=== PATIENT | male | born 1950 | race Caucasian/White ===

== ENCOUNTER 2017-09-12 14:37 | Inpatient (IN) | payer MEDICARE, MEDICAID ==
[~2017-09-12] VITALS: Ht 172.7 cm; Wt 82.1 kg
[~2017-09-12 14:37] MED LIST: ONDA4TAB5 PO
--- NOTE | 2017-09-12 14:50 | NUR ---
RICK 88 FROM [facility] COMPLAINING OF CHEST PAIN, NON RADIATING SINCE THIS AM, PATIENT RECEIVED AWAKE AND ALERT. APPEARS IN NO DISTRESS. AFEBRILE. GOWNED PT AND PLACED ON TELE MONITOR. PENDING MD CHOI
[2017-09-12 15:02] LABS: BASOPHILS % (AUTO) 0.6 % (0.0-2.0); EOSINOPHILS # (AUTO) 0.3 /CMM (0.0-0.7); EOSINOPHILS % (AUTO) 4.1 % (0.0-6.0); HEMATOCRIT 36 % (39-51); HEMOGLOBIN 12.2 g/dL (13.5-17.5); LYMPHOCYTES # (AUTO) 1.2 /CMM (0.8-4.8); LYMPHOCYTES % (AUTO) 15.7 % (20.0-44.0); MEAN CORPUSCULAR HEMOGLOBIN 30 PG (26.0-33.0); MEAN CORPUSCULAR HGB CONC 34 g/dl (31.0-36.0); MEAN CORPUSCULAR VOLUME 88 fL (80-96); MONOCYTES # (AUTO) 0.5 /CMM (0.1-1.30); MONOCYTES % (AUTO) 6.5 % (2.0-12.0); NEUTROPHILS # (AUTO) 5.4 /CMM (1.8-8.9); NEUTROPHILS % (AUTO) 73.1 % (43.0-81.0); PLATELET COUNT (AUTO) 195 /CMM (150-450); RDW COEFFICIENT OF VARIATION 14.8 (11.5-15.0); RED BLOOD CELL COUNT(AUTO) 4.07 MIL/uL (4.5-6.0); WHITE BLOOD COUNT (AUTO) 7.4 K/uL (4.3-11.0)
[2017-09-12 15:25] LABS: INR 1.08 (0.87-1.13)
[2017-09-12 15:27] LABS: CALCIUM, SERUM 8.2 mg/dL (8.5-10.1); CARBON DIOXIDE 27 mmol/L (21-32); CHLORIDE 109 mmol/L (98-107); CREATININE 1.3 mg/dL (0.6-1.3); GLUCOSE 181 mg/dL (74-106); POTASSIUM 4.6 mmol/L (3.5-5.1); SODIUM SERUM 143 mmol/L (136-145); UREA NITROGEN, BLOOD 23 mg/dL (7-18)
[2017-09-12 15:41] LABS: TROPONIN I < 0.017 ng/mL (0.00-0.056)
--- NOTE | 2017-09-12 17:13 | NUR ---
CALLED NURSING SUP. FOR TELE BED
--- NOTE | 2017-09-12 17:28 | NUR ---
CALLED , LEFT MESSAGE ON VOICEMAIL
--- NOTE | 2017-09-12 18:00 | NUR ---
TELE 116-1
[2017-09-12] MEDS ORDERED: CARV3.122 PO (18:23)
--- NOTE | 2017-09-12 18:36 | NUR ---
REPORT GIVEN TO SUMANTH ERICKSON FOR LEIGH ANN
[2017-09-12] MEDS ORDERED: RANO500T3 PO (18:37)
[2017-09-12] MEDS ORDERED: NITR0.4T48 SL (18:37)
[2017-09-12] MEDS ORDERED: SENN-167 PO (18:37)
[2017-09-12] MEDS ORDERED: DIGO125T PO (18:37)
[2017-09-12] MEDS ORDERED: ATOR20TA PO (18:37)
[2017-09-12] MEDS ORDERED: APIX2.5T PO (18:37)
[2017-09-12] MEDS ORDERED: FINA5TAB11 PO (18:37)
[2017-09-12] MEDS ORDERED: ISOS30TA6 PO (18:37)
[2017-09-12] MEDS ORDERED: LEVO100T9 PO (18:37)
[2017-09-12] MEDS ORDERED: TAMS0.4C34 PO (18:37)
[2017-09-12] MEDS ORDERED: MAGN400O6 PO (18:37)
[2017-09-12] MEDS ORDERED: CLOP75TA15 PO (18:37)
[2017-09-12] MEDS ORDERED: IPRA0.2S9 IH (18:37)
[2017-09-12] MEDS ORDERED: RANI150C4 PO (18:37)
[2017-09-12] MEDS ORDERED: BISA10SU8 RC (18:37)
[2017-09-12] MEDS ORDERED: LINA5TAB PO (18:43)
[2017-09-12] MEDS ORDERED: ASPI-1169 PO (18:43)
[2017-09-12] MEDS ORDERED: SERT50TA PO (18:43)
[2017-09-12] MEDS ORDERED: MULT-447 PO (18:43)
[2017-09-12] MEDS ORDERED: CALC1TAB30 PO (18:43)
--- NOTE | 2017-09-12 19:05 | NUR ---
SY PAGED, SHANNON PAIGE TRACK FITTER
[2017-09-12] MEDS ORDERED: ASPIRIN 81 MG TAB.CHEW ONE (19:24)
[2017-09-12 20:00] VITALS: BP 114/78
[2017-09-12] MEDS ORDERED: NITROGLYCERIN 0.4 MG/TAB BOTTLE SL PRN (20:00)
[2017-09-12] MEDS ORDERED: ACETAMINOPHEN 325 MG TABLET PO PRN (20:00)
[2017-09-12] MEDS ORDERED: MAGNESIUM HYDROXIDE 30 ML UDC PO PRN (20:00)
[2017-09-12] MEDS ORDERED: ONDANSETRON HCL/PF 4 MG/2 ML VIAL IVP PRN (20:00)
[2017-09-12] MEDS ORDERED: DEXTROSE 50%-WATER 50 ML DISP.SYRIN IV PRN (20:00)
[2017-09-12] MEDS ORDERED: IPRATROPIUM NEB FS 0.5 MG/2.5 ML AMPUL.NEB IH PRN (20:00)
[2017-09-12] MEDS ORDERED: BISACODYL SUPP (10 MG) 10 MG/SUPP.RECT SUPP.RECT RC PRN (20:00)
[2017-09-12] MEDS ORDERED: MORPHINE SULFATE INJ 4 MG/ML DISP.SYRIN IV PRN (20:30)
[2017-09-12] MEDS: ATORVASTATIN 10 MG TABLET PO SCH (22:00)
[2017-09-12] MEDS: FUROSEMIDE 20 MG/2 ML VIAL IV SCH (22:00)
[2017-09-12] MEDS: BLOOD SUGAR DIAGNOSTIC 1 EACH STRIP IN SCH (22:24)
[2017-09-12] MEDS: INSULIN REGULAR, HUMAN 100 UNIT/ML 3 ML VIAL SQ PRN (22:26)
[2017-09-13] VITALS: BP 132/82
[2017-09-13] MEDS: FUROSEMIDE 20 MG/2 ML VIAL IV SCH ×2 (01:22→05:00)
[2017-09-13 04:00] VITALS: BP 132/64
[2017-09-13 06:40] LABS: BASOPHILS % (AUTO) 0.4 % (0.0-2.0); EOSINOPHILS # (AUTO) 0.4 /CMM (0.0-0.7); EOSINOPHILS % (AUTO) 4.7 % (0.0-6.0); HEMATOCRIT 40 % (39-51); HEMOGLOBIN 13.6 g/dL (13.5-17.5); LYMPHOCYTES # (AUTO) 1.2 /CMM (0.8-4.8); LYMPHOCYTES % (AUTO) 14.1 % (20.0-44.0); MEAN CORPUSCULAR HEMOGLOBIN 30 PG (26.0-33.0); MEAN CORPUSCULAR HGB CONC 34 g/dl (31.0-36.0); MEAN CORPUSCULAR VOLUME 89 fL (80-96); MONOCYTES # (AUTO) 0.5 /CMM (0.1-1.30); MONOCYTES % (AUTO) 6.3 % (2.0-12.0); NEUTROPHILS # (AUTO) 6.1 /CMM (1.8-8.9); NEUTROPHILS % (AUTO) 74.5 % (43.0-81.0); PLATELET COUNT (AUTO) 180 /CMM (150-450); RDW COEFFICIENT OF VARIATION 15.6 (11.5-15.0); RED BLOOD CELL COUNT(AUTO) 4.49 MIL/uL (4.5-6.0); WHITE BLOOD COUNT (AUTO) 8.2 K/uL (4.3-11.0)
[2017-09-13 06:51] LABS: ALBUMIN 3.3 g/dL (3.4-5.0); BILIRUBIN,TOTAL 1.5 mg/dL (0.2-1.0); CALCIUM, SERUM 8.7 mg/dL (8.5-10.1); CREATININE 1.4 mg/dL (0.6-1.3); MAGNESIUM 1.8 mg/dL (1.8-2.4); PHOSPHORUS 3.3 mg/dL (2.5-4.9); POTASSIUM 3.9 mmol/L (3.5-5.1); TOTAL PROTEIN, SERUM 7.2 g/dL (6.4-8.2)
[2017-09-13 06:54] LABS: THYROID STIMULATING HORMONE 6.669 uIU/mL (0.358-3.74)
--- NOTE | 2017-09-13 07:41 | NUR ---
RN NOTES RECEIVED PT FROM TECHNICAL MAINTENANCE SPECIALIST IN STABLE CONDITION, A&0X3, ON 2L NC NO SOB OR DISTRESS NOTED. ST ON THE TELE DELANO HR 120. L AC 18G IV SITE INTACT NO IVF. BED LOCKED AND IN LOWEST POSITION, CALL LIGHT WITHIN REACH, SIDE RAILS UPX3, WILL CONT TO DELANO.
[2017-09-13 08:00] VITALS: BP 103/60
[2017-09-13] MEDS: BLOOD SUGAR DIAGNOSTIC 1 EACH STRIP IN SCH ×4 (08:34→22:03)
[2017-09-13] MEDS: SERTRALINE HCL 50 MG TABLET PO SCH (08:36)
[2017-09-13] MEDS: CARVEDILOL 3.125 MG TABLET PO SCH ×2 (08:36→16:55)
[2017-09-13] MEDS: CLOPIDOGREL BISULFATE 75 MG TABLET PO SCH (08:36)
[2017-09-13] MEDS: SENNOSIDES 8.6 MG TABLET PO SCH (08:37)
[2017-09-13] MEDS: FINASTERIDE (5 MG) 5 MG TABLET PO SCH (08:37)
[2017-09-13] MEDS: LEVOTHYROXINE SODIUM 100 MCG TABLET PO SCH (08:37)
[2017-09-13] MEDS: LINAGLIPTIN 5 MG TABLET PO SCH (08:37)
[2017-09-13] MEDS: ISOSORBIDE MONONITRATE (30MG) 30 MG TAB.SR.24H PO SCH (08:38)
[2017-09-13] MEDS: INSULIN REGULAR, HUMAN 100 UNIT/ML 3 ML VIAL SQ PRN ×3 (08:41→22:07)
[2017-09-13] MEDS: APIXABAN 2.5 MG TABLET PO SCH ×2 (08:42→16:53)
[2017-09-13] MEDS ORDERED: FUROSEMIDE 20 MG/2 ML VIAL IV SCH (09:00)
[2017-09-13] MEDS ORDERED: ASPIRIN 81 MG TAB.CHEW PO SCH ×2 (09:00)
[2017-09-13] MEDS: TAMSULOSIN 0.4 MG CAP.SR.24H PO SCH (09:22)
[2017-09-13] MEDS: FUROSEMIDE 40 MG/4 ML VIAL IV SCH ×3 (11:07→18:28)
[2017-09-13 11:49] LABS: ABG BASE EXCESS 3.2 mmol/L; ABG OXYGEN SATURATION 92.7 % (92.0-98.5); ABG PH 7.475 (7.350-7.450); ABG PO2 65.7 mmHg (75.0-100.0); AaDO2 119.2 mmHg; COHb 1.5 % (0.5-1.5); MetHb 0.3 % (0.0-1.5); SITE, ABG Right Brachial; VENT MODE, BG 3L NC
[2017-09-13 12:00] VITALS: BP 105/60
[2017-09-13 12:06] LABS: THYROID STIMULATING HORMONE 6.604 uIU/mL (0.358-3.74)
[2017-09-13] MEDS: DIGOXIN 0.125 MG TABLET PO SCH (12:17)
[2017-09-13 16:00] VITALS: BP 117/82
--- NOTE | 2017-09-13 18:50 | NUR ---
RN NOTES PT REMAINED IN STABLE IN STABLE CONDITION THROUGHOUT THE SHIFT, NO SIGNIFICANT CHANGES, ALL NEEDS MET. WILL ENDORSE TO ONCOMING SHIFT.
[2017-09-13 20:00] VITALS: BP 109/75
[2017-09-13] MEDS: ATORVASTATIN 10 MG TABLET PO SCH (22:03)
[2017-09-14] VITALS: BP 107/73
[2017-09-14 04:00] VITALS: BP 123/71
[2017-09-14 06:58] LABS: BASOPHILS # (AUTO) 0.1 /CMM (0.0-0.2); BASOPHILS % (AUTO) 0.9 % (0.0-2.0); EOSINOPHILS # (AUTO) 0.6 /CMM (0.0-0.7); EOSINOPHILS % (AUTO) 5.1 % (0.0-6.0); HEMATOCRIT 44 % (39-51); HEMOGLOBIN 14.7 g/dL (13.5-17.5); LYMPHOCYTES # (AUTO) 1.3 /CMM (0.8-4.8); LYMPHOCYTES % (AUTO) 11.9 % (20.0-44.0); MEAN CORPUSCULAR HEMOGLOBIN 30 PG (26.0-33.0); MEAN CORPUSCULAR HGB CONC 34 g/dl (31.0-36.0); MEAN CORPUSCULAR VOLUME 90 fL (80-96); MONOCYTES # (AUTO) 1.1 /CMM (0.1-1.30); MONOCYTES % (AUTO) 9.8 % (2.0-12.0); NEUTROPHILS # (AUTO) 7.8 /CMM (1.8-8.9); NEUTROPHILS % (AUTO) 72.3 % (43.0-81.0); PLATELET COUNT (AUTO) 194 /CMM (150-450); RDW COEFFICIENT OF VARIATION 15.4 (11.5-15.0); RED BLOOD CELL COUNT(AUTO) 4.84 MIL/uL (4.5-6.0); WHITE BLOOD COUNT (AUTO) 10.8 K/uL (4.3-11.0)
[2017-09-14 07:13] LABS: ALBUMIN 3.4 g/dL (3.4-5.0); CALCIUM, SERUM 8.6 mg/dL (8.5-10.1); CREATININE 1.7 mg/dL (0.6-1.3); MAGNESIUM 1.8 mg/dL (1.8-2.4); PHOSPHORUS 4.5 mg/dL (2.5-4.9); POTASSIUM 3.3 mmol/L (3.5-5.1); TOTAL PROTEIN, SERUM 7.6 g/dL (6.4-8.2)
[2017-09-14 07:15] LABS: TROPONIN I 0.018 ng/mL (0.00-0.056)
--- NOTE | 2017-09-14 07:34 | NUR ---
RN NOTES RECEIVED PT FROM BRUSH POLISHER, A&0X3, ON 2L NC, NO DISTRESS NOTED. A FLUTTER/ST ON THE TELE DELANO HR 120. LAC 18G IV SITE INTACT NO IVF. URINAL AT BEDSIDE. BED LOCKED AND IN LOWEST POSITION, CALL LIGHT WITHIN REACH, SIDE RAILS UPX3, WILL CONT TO DELANO.
[2017-09-14 08:00] VITALS: BP 104/76
[2017-09-14] MEDS: INSULIN REGULAR, HUMAN 100 UNIT/ML 3 ML VIAL SQ PRN ×4 (08:52→21:35)
[2017-09-14] MEDS: TAMSULOSIN 0.4 MG CAP.SR.24H PO SCH (08:54)
[2017-09-14] MEDS: CLOPIDOGREL BISULFATE 75 MG TABLET PO SCH (08:55)
[2017-09-14] MEDS: SERTRALINE HCL 50 MG TABLET PO SCH (08:55)
[2017-09-14] MEDS: SENNOSIDES 8.6 MG TABLET PO SCH (08:56)
[2017-09-14] MEDS: LEVOTHYROXINE SODIUM 100 MCG TABLET PO SCH (08:56)
[2017-09-14] MEDS: BLOOD SUGAR DIAGNOSTIC 1 EACH STRIP IN SCH ×4 (08:56→21:27)
[2017-09-14] MEDS: LINAGLIPTIN 5 MG TABLET PO SCH (08:56)
[2017-09-14] MEDS: FINASTERIDE (5 MG) 5 MG TABLET PO SCH (08:56)
[2017-09-14] MEDS: ISOSORBIDE MONONITRATE (30MG) 30 MG TAB.SR.24H PO SCH (09:00)
[2017-09-14] MEDS: CARVEDILOL 3.125 MG TABLET PO SCH ×2 (09:00→17:00)
[2017-09-14] MEDS: APIXABAN 2.5 MG TABLET PO SCH ×2 (09:03→17:32)
[2017-09-14] MEDS ORDERED: FUROSEMIDE 40 MG/4 ML VIAL IV SCH (10:00)
[2017-09-14] MEDS: POTASSIUM CHLORIDE 20 MEQ TAB.PRT.SR PO SCH ×3 (10:14→12:23)
[2017-09-14 12:00] VITALS: BP 132/81
[2017-09-14] MEDS: DIGOXIN 0.125 MG TABLET PO SCH (12:24)
[2017-09-14] MEDS: MAG HYDROX/AL HYDROX/SIMETH 30 ML UDC PO SCH ×2 (15:05→20:30)
[2017-09-14 16:00] VITALS: BP 107/85
--- NOTE | 2017-09-14 18:29 | NUR ---
RN NOTES PT REMAINED IN STABLE CONDITION THROUGHOUT THE SHIFT, ALL NEEDS MET, NO SIGNIFICANT CHANGES NOTED. CT ABDOMEN COMPLETE. WILL ENDORSE TO ONCOMING SHIFT.
--- NOTE | 2017-09-14 19:50 | NUR ---
RN OPENING NOTES RECEIVED REPORT FROM DAYSHIFT RN. FOUND Pt AWAKE, RESTING IN BED, WATCHING TV. NO S/S OF ACUTE DISTRESS OR SOB NOTED. NO C/O CP OR ANY OTHER PAIN. IV ACCESS ON LAC #18G, SL. ON TELE MONITOR, ST 120s. SAFETY MEASURES IN PLACE. BED LOW, LOCKED, HOB ELEVATED, SIDE RAILS UP, CALL LIGHT AND BEDSIDE TABLE WITHIN REACH. WILL CONTINUE TO MONITOR Pt THROUGH OUT THE NIGHT FOR SAFETY.
[2017-09-14 20:00] VITALS: BP 132/67
[2017-09-14] MEDS: ATORVASTATIN 10 MG TABLET PO SCH (21:27)
--- NOTE | 2017-09-14 22:30 | NUR ---
RN NOTES BG 148. ADMINISTERED 2UN OF INSULIN PER SLIDING SCALE.
[2017-09-15] VITALS (8 sets, daily range): BP systolic 97–127; BP diastolic 66–86
[2017-09-15] MEDS: MAG HYDROX/AL HYDROX/SIMETH 30 ML UDC PO SCH ×4 (02:30→19:49)
--- NOTE | 2017-09-15 06:45 | NUR ---
RN CLOSING NOTES NO SIGNIFICANT CHANGES IN Pt's CONDITION. Pt REMAINS IN STABLE CONDITION. NO S/S OF ACUTE DISTRESS OR SOB NOTED DURING THE NIGHT. ALL NEEDS MET AND ATTENDED TO. SAFETY MEASURES IN PLACE. TELE READING SR 88 - ST 125, AFLUTTER. WILL ENDORSE TO DAYSHIFT RN FOR Pt's LEIGH ANN.
[2017-09-15] MEDS: PANTOPRAZOLE 40 MG TABLET.DR PO SCH (07:30)
--- NOTE | 2017-09-15 07:30 | NUR ---
RESEARCH ENGINEER NOTES PATIENT IN BED, SLEEPING, AROUSES EASILY. ON TELE MONITOR AFLUTTER HR 126, SATING 96% ON OXYGENT AT 2L/MIN VIA NC, NO SOB. NO IVC IN PLACE. PLACE CALL LIGHT WITHIN REACH. WILL CONT TO MONITOR.
[2017-09-15] MEDS: BLOOD SUGAR DIAGNOSTIC 1 EACH STRIP IN SCH ×4 (08:27→21:24)
[2017-09-15] MEDS: SENNOSIDES 8.6 MG TABLET PO SCH (09:21)
[2017-09-15] MEDS: FINASTERIDE (5 MG) 5 MG TABLET PO SCH (09:22)
[2017-09-15] MEDS: SERTRALINE HCL 50 MG TABLET PO SCH (09:22)
[2017-09-15] MEDS: TAMSULOSIN 0.4 MG CAP.SR.24H PO SCH (09:22)
[2017-09-15] MEDS: LEVOTHYROXINE SODIUM 100 MCG TABLET PO SCH (09:22)
[2017-09-15] MEDS: ISOSORBIDE MONONITRATE (30MG) 30 MG TAB.SR.24H PO SCH (09:23)
[2017-09-15] MEDS: CARVEDILOL 3.125 MG TABLET PO SCH (09:23)
[2017-09-15] MEDS: LINAGLIPTIN 5 MG TABLET PO SCH (09:26)
[2017-09-15] MEDS: APIXABAN 2.5 MG TABLET PO SCH ×2 (09:32→16:49)
[2017-09-15] MEDS: INSULIN REGULAR, HUMAN 100 UNIT/ML 3 ML VIAL SQ PRN ×4 (09:34→21:27)
[2017-09-15 09:48] LABS: BASOPHILS # (AUTO) 0.1 /CMM (0.0-0.2); BASOPHILS % (AUTO) 1.2 % (0.0-2.0); EOSINOPHILS # (AUTO) 0.4 /CMM (0.0-0.7); EOSINOPHILS % (AUTO) 3.9 % (0.0-6.0); HEMATOCRIT 45 % (39-51); HEMOGLOBIN 15.1 g/dL (13.5-17.5); LYMPHOCYTES # (AUTO) 1.3 /CMM (0.8-4.8); LYMPHOCYTES % (AUTO) 12.5 % (20.0-44.0); MEAN CORPUSCULAR HEMOGLOBIN 30 PG (26.0-33.0); MEAN CORPUSCULAR HGB CONC 33 g/dl (31.0-36.0); MEAN CORPUSCULAR VOLUME 90 fL (80-96); MONOCYTES # (AUTO) 0.8 /CMM (0.1-1.30); MONOCYTES % (AUTO) 7.7 % (2.0-12.0); NEUTROPHILS # (AUTO) 7.7 /CMM (1.8-8.9); NEUTROPHILS % (AUTO) 74.7 % (43.0-81.0); PLATELET COUNT (AUTO) 232 /CMM (150-450); RDW COEFFICIENT OF VARIATION 15.6 (11.5-15.0); RED BLOOD CELL COUNT(AUTO) 5.06 MIL/uL (4.5-6.0); WHITE BLOOD COUNT (AUTO) 10.3 K/uL (4.3-11.0)
[2017-09-15 10:10] LABS: ALBUMIN 3.4 g/dL (3.4-5.0); BILIRUBIN,TOTAL 0.9 mg/dL (0.2-1.0); CALCIUM, SERUM 8.5 mg/dL (8.5-10.1); CREATININE 1.6 mg/dL (0.6-1.3); MAGNESIUM 2.2 mg/dL (1.8-2.4); PHOSPHORUS 3.9 mg/dL (2.5-4.9); POTASSIUM 4.3 mmol/L (3.5-5.1); TOTAL PROTEIN, SERUM 7.6 g/dL (6.4-8.2)
[2017-09-15] MEDS: CARVEDILOL 6.25 MG TABLET PO SCH ×2 (11:00→16:53)
--- NOTE | 2017-09-15 11:17 | NUR ---
NEW ORDER CARVEDILOL 6.26MG BID, CLARIFIED ORDERS WITH DR. TOUSSAINT, PER MD TO GIVE CARVEDILOL 3.215MG X1 TOTAL OF 6.25MG AM DOSE.
[2017-09-15] MEDS ORDERED: CARVEDILOL 3.125 MG TABLET PO ONE (11:30)
[2017-09-15] MEDS ORDERED: LEVOFLOXACIN 500 MG /D5W 100ML 500 MG in PREMIX 1 EA IV SCH (12:00)
[2017-09-15] MEDS ORDERED: LEVOFLOXACIN 500 MG /D5W 100ML 500 MG in PREMIX 1 EA IV ONE (12:00)
[2017-09-15] MEDS: DIGOXIN 0.125 MG TABLET PO SCH (12:40)
[2017-09-15] MEDS: FUROSEMIDE 100 MG/10 ML VIAL IV SCH ×3 (12:48→19:51)
--- NOTE | 2017-09-15 18:28 | NUR ---
INTERMEDIATE SCHOOL TEACHER CLOSING NOTES PATIENT IN BED, AWAKE, A/O X3. ON TELE MONITOR AFLWAYLON HR 126, IS AWARE, DENIES ANY DISCOMFORT. BLOOD SUGAR MONITORED WITH ISS COVERAGE ORDERED. IVC IN LEFT WRIST G22 PATENT AND INTACT, FLUSHES WELL. IV ANTIBIOTIC GIVEN WITH NO ADVERSE SIDE EFFECT. URINE SENT TO LAB FOR TEST, RESULT PENDING. CALL LIGHT WITHIN REACH. WILL ENDORSE TO STEWARD/STEWARDESS SMOKE ROOM RN FOR LEIGH ANN.
--- NOTE | 2017-09-15 19:40 | NUR ---
rn initial notes: received report from day rn, pt in bed, awake, a/o x3 on 2l via nc respiration even and unlabored, denies any pain or discomfort at this time. lV access patent and flushing well, covered with kerlix, on hl. ble offloaded, pt using urinal, urinal within reach. on tele monitoring AFLUTTER HR 122, cardio following the pt, md aware of rhythm, safety precautions for fall initiated call light in reach, will continue monitoring pt
[2017-09-15] MEDS: ATORVASTATIN 10 MG TABLET PO SCH (21:24)
--- NOTE | 2017-09-15 21:28 | NUR ---
ACCU CHECK: BLOOD SUGAR CHECK AND REVEAL 179, 3UNITS OF INSULIN GIVEN PER SLIDING SCALE, PT TOLERATING PO INTAKE, ON CCHO DIET, WILL MONITOR PT FOR ANY S/S OF HYPOGLYCEMIA
[2017-09-16] VITALS: BP 91/67
[2017-09-16 00:47] LABS: APPEARANCE,URINE CLEAR (CLEAR); BILIRUBIN,URINE NEGATIVE (NEGATIVE); BLOOD, URINE NEGATIVE Ery/uL (NEGATIVE); COLOR,URINE YELLOW (YELLOW); KETONES,URINE NEGATIVE (NEGATIVE); LEUKOCYTE ESTERASE ,URINE NEGATIVE (NEGATIVE); NITRITE, URINE NEGATIVE (NEGATIVE); PROTEIN,URINE NEGATIVE (NEGATIVE); UGLUCOSE NEGATIVE (NEGATIVE); UROBILINOGEN,URINE 0.2 EU/dL (0.2)
[2017-09-16 00:57] LABS: CREATININE, URINE 27.8 MG/DL (30.0-125.0); URINE TOTAL PROTEIN 10.1 mg/dL (0-11.9)
[2017-09-16 01:53] LABS: EOSINOPHIL,URINE None Seen
[2017-09-16] MEDS: MAG HYDROX/AL HYDROX/SIMETH 30 ML UDC PO SCH ×4 (02:30→21:27)
[2017-09-16 04:00] VITALS: BP 102/68
--- NOTE | 2017-09-16 05:30 | NUR ---
am care: bed bath provided by will
[2017-09-16] MEDS: BLOOD SUGAR DIAGNOSTIC 1 EACH STRIP IN SCH ×4 (06:15→21:27)
[2017-09-16] MEDS: LEVOTHYROXINE SODIUM 100 MCG TABLET PO SCH (06:16)
[2017-09-16] MEDS: PANTOPRAZOLE 40 MG TABLET.DR PO SCH (06:16)
[2017-09-16] MEDS: INSULIN REGULAR, HUMAN 100 UNIT/ML 3 ML VIAL SQ PRN ×4 (06:18→21:30)
--- NOTE | 2017-09-16 06:18 | NUR ---
BLOOD SUGAR: CHECKED BLOOD SUGAR FOR THE MORNING, AND RESULT IS 194, 3UNITS OF INSULIN GIVEN PER SLIDING SCALE, WILL MONITOR PT FOR ANY S/S OF HYPOGLYCEMIA
--- NOTE | 2017-09-16 06:34 | NUR ---
rn closing notes: pt in bed, remains a/o x3, on 2l via nc denies any sob, denies any chest pain. iv access remains patent and flushing well, on hl. weight taken. vs remains stable, pt remains on a flutter hr 121. ble offloaded. needs attended. safety precautions for fall remain engaged, call light in reach, will endorse to day rn for jace.
[2017-09-16 07:41] LABS: BASOPHILS % (AUTO) 0.3 % (0.0-2.0); EOSINOPHILS # (AUTO) 0.7 /CMM (0.0-0.7); EOSINOPHILS % (AUTO) 5.5 % (0.0-6.0); HEMATOCRIT 44 % (39-51); HEMOGLOBIN 15.1 g/dL (13.5-17.5); LYMPHOCYTES # (AUTO) 1.8 /CMM (0.8-4.8); LYMPHOCYTES % (AUTO) 14.1 % (20.0-44.0); MEAN CORPUSCULAR HEMOGLOBIN 30 PG (26.0-33.0); MEAN CORPUSCULAR HGB CONC 34 g/dl (31.0-36.0); MEAN CORPUSCULAR VOLUME 88 fL (80-96); MONOCYTES % (AUTO) 8.1 % (2.0-12.0); NEUTROPHILS # (AUTO) 8.9 /CMM (1.8-8.9); PLATELET COUNT (AUTO) 246 /CMM (150-450); RDW COEFFICIENT OF VARIATION 14.9 (11.5-15.0); RED BLOOD CELL COUNT(AUTO) 4.99 MIL/uL (4.5-6.0); WHITE BLOOD COUNT (AUTO) 12.4 K/uL (4.3-11.0)
[2017-09-16 07:52] LABS: ALBUMIN 3.4 g/dL (3.4-5.0); BILIRUBIN,TOTAL 0.8 mg/dL (0.2-1.0); CALCIUM, SERUM 8.7 mg/dL (8.5-10.1); CREATININE 1.8 mg/dL (0.6-1.3); MAGNESIUM 2.3 mg/dL (1.8-2.4); POTASSIUM 3.4 mmol/L (3.5-5.1); TOTAL PROTEIN, SERUM 7.6 g/dL (6.4-8.2)
[2017-09-16 08:00] VITALS: BP_SYST 107; BP_SYST 114; BP_DIAS 59; BP_DIAS 78
[2017-09-16] MEDS: SENNOSIDES 8.6 MG TABLET PO SCH (09:36)
[2017-09-16] MEDS: LINAGLIPTIN 5 MG TABLET PO SCH (09:38)
[2017-09-16] MEDS: SERTRALINE HCL 50 MG TABLET PO SCH (09:38)
[2017-09-16] MEDS: TAMSULOSIN 0.4 MG CAP.SR.24H PO SCH (09:38)
[2017-09-16] MEDS: FINASTERIDE (5 MG) 5 MG TABLET PO SCH (09:39)
[2017-09-16] MEDS: ISOSORBIDE MONONITRATE (30MG) 30 MG TAB.SR.24H PO SCH (09:40)
[2017-09-16] MEDS: CARVEDILOL 6.25 MG TABLET PO SCH ×2 (09:41→17:00)
[2017-09-16] MEDS: APIXABAN 2.5 MG TABLET PO SCH ×2 (09:42→17:14)
[2017-09-16] MEDS: POTASSIUM CHLORIDE 20 MEQ TAB.PRT.SR PO SCH ×2 (11:00→11:08)
[2017-09-16] MEDS: DIGOXIN 0.125 MG TABLET PO SCH (12:48)
[2017-09-16] MEDS ORDERED: POTASSIUM CHLORIDE 20 MEQ TAB.PRT.SR PO SCH (13:00)
[2017-09-16] MEDS: LEVOFLOXACIN 250 MG /D5W 50 ML 250 MG in PREMIX 1 EA IV SCH (14:29)
[2017-09-16 16:00] VITALS: BP 98/73
--- NOTE | 2017-09-16 17:30 | NUR ---
RN NOTE ADDED PUREED TEXTURE TO THE DIET DUE TO PT POOR PO INTAKE SECONDARY TO ABSENT DENTURES. PT UNABLE TO CHEW REGULAR FOOD.
--- NOTE | 2017-09-16 18:54 | NUR ---
RN NOTE PT REMAINED STABLE, SLEPT MOST OF THE DAY, WAS AWAKEN FOR FOOD AND MEDS. PT ABLE TO USE URINAL. PT DID NOT EAT BREAKFAST AND LUNCH BUT FOR DINNER ATE 100%. ALL NEEDS MET, MEDS GIVEN PRESCRIBED, CALL LIGHT WITHIN REACH. WILL ENDORSE TO LEATHER FLESHER.
--- NOTE | 2017-09-16 19:30 | NUR ---
rn initial notes: received pt in bed, awake, a/o x3 on 2l via nc respiration even and unlabored, denies any pain or discomfort at this time. lV access patent and flushing well, covered with kerlix, on hl. ble offloaded. safety precautions for fall initiated call light in reach, will continue monitoring pt
[2017-09-16 20:00] VITALS: BP 103/74
[2017-09-16] MEDS: ATORVASTATIN 10 MG TABLET PO SCH (21:27)
[2017-09-17] MEDS: MAG HYDROX/AL HYDROX/SIMETH 30 ML UDC PO SCH ×4 (02:30→20:56)
--- NOTE | 2017-09-17 06:31 | NUR ---
rn closing notes: pt in bed, remains a/o x3, on 2l via nc denies any sob, denies any chest pain. iv access remains patent and flushing well, on hl. vs remains stable, ble offloaded. needs attended. safety precautions for fall remain engaged, call light in reach, will endorse to day rn for jace.
[2017-09-17] MEDS: BLOOD SUGAR DIAGNOSTIC 1 EACH STRIP IN SCH ×4 (06:35→22:00)
[2017-09-17] MEDS: INSULIN REGULAR, HUMAN 100 UNIT/ML 3 ML VIAL SQ PRN ×3 (06:36→22:08)
[2017-09-17 06:52] LABS: BASOPHILS # (AUTO) 0.1 /CMM (0.0-0.2); BASOPHILS % (AUTO) 0.7 % (0.0-2.0); EOSINOPHILS # (AUTO) 0.6 /CMM (0.0-0.7); EOSINOPHILS % (AUTO) 6.1 % (0.0-6.0); HEMATOCRIT 43 % (39-51); HEMOGLOBIN 14.5 g/dL (13.5-17.5); LYMPHOCYTES # (AUTO) 1.6 /CMM (0.8-4.8); LYMPHOCYTES % (AUTO) 15.9 % (20.0-44.0); MEAN CORPUSCULAR HEMOGLOBIN 30 PG (26.0-33.0); MEAN CORPUSCULAR HGB CONC 34 g/dl (31.0-36.0); MEAN CORPUSCULAR VOLUME 89 fL (80-96); MONOCYTES # (AUTO) 0.9 /CMM (0.1-1.30); MONOCYTES % (AUTO) 8.6 % (2.0-12.0); NEUTROPHILS # (AUTO) 6.8 /CMM (1.8-8.9); NEUTROPHILS % (AUTO) 68.7 % (43.0-81.0); PLATELET COUNT (AUTO) 232 /CMM (150-450); RDW COEFFICIENT OF VARIATION 15.6 (11.5-15.0)
[2017-09-17 07:04] LABS: CALCIUM, SERUM 8.3 mg/dL (8.5-10.1); CREATININE 1.6 mg/dL (0.6-1.3); MAGNESIUM 2.6 mg/dL (1.8-2.4); PHOSPHORUS 3.6 mg/dL (2.5-4.9); POTASSIUM 3.7 mmol/L (3.5-5.1)
--- NOTE | 2017-09-17 07:32 | NUR ---
RN OPENING NOTES RECEIVED PATIENT IN BED RESTING. NO ACUTE DISTRESS, NO SOB NOTED. DENIES ANY PAIN OR DISCOMFORT. IV SITE INTACT AND PATENT. SAFETY PRECAUTIONS IN PLACE. BED IN LOCKED LOW POSITION, SIDERAILS UPX2. CALL LIGHT IN REACH. WILL CONTINUE TO MONITOR ACCORDINGLY.
[2017-09-17 07:55] VITALS: BP 101/65
[2017-09-17 08:00] VITALS: BP 101/65
[2017-09-17] MEDS: PANTOPRAZOLE 40 MG TABLET.DR PO SCH (08:25)
[2017-09-17] MEDS: LINAGLIPTIN 5 MG TABLET PO SCH (08:26)
[2017-09-17] MEDS: LEVOTHYROXINE SODIUM 100 MCG TABLET PO SCH (08:26)
[2017-09-17] MEDS: FINASTERIDE (5 MG) 5 MG TABLET PO SCH (08:26)
[2017-09-17] MEDS: TAMSULOSIN 0.4 MG CAP.SR.24H PO SCH (08:26)
[2017-09-17] MEDS: SERTRALINE HCL 50 MG TABLET PO SCH (08:28)
[2017-09-17] MEDS: APIXABAN 2.5 MG TABLET PO SCH ×2 (08:28→16:51)
[2017-09-17] MEDS: CARVEDILOL 6.25 MG TABLET PO SCH ×2 (08:50→17:00)
[2017-09-17] MEDS: ISOSORBIDE MONONITRATE (30MG) 30 MG TAB.SR.24H PO SCH (08:51)
[2017-09-17] MEDS ORDERED: LACTULOSE 10 G/15 ML UDC (PYXIS) PO STA (10:15)
[2017-09-17] MEDS ORDERED: POLYETHYLENE GLYCOL 3350 17 GM POWD.PACK PO PRN (10:30)
[2017-09-17] MEDS ORDERED: TAMSULOSIN 0.4 MG CAP.SR.24H PO SCH ×2 (11:00→22:00)
[2017-09-17] MEDS: LEVOFLOXACIN 250 MG /D5W 50 ML 250 MG in PREMIX 1 EA IV SCH (12:15)
[2017-09-17] MEDS: DIGOXIN 0.125 MG TABLET PO SCH (13:39)
[2017-09-17 16:00] VITALS: BP 105/74
--- NOTE | 2017-09-17 19:23 | NUR ---
RN CLOSING NOTES PATIENT IN BED RESTING. NO ACUTE DISTRESS, NO SOB NOTED. ALL NEEDS ATTENDED AND PROVIDED. KEPT PATIENT CLEAN AND COMFORTABLE IN BED. SAFETY MEASURES IN PLACE. BED IN LOW LOCKED POSITION, SIDERAILS UPX2, CALL LIGHT IN REACH. ENDORSED TO NIGHT RN FOR LEIGH ANN.
--- NOTE | 2017-09-17 19:30 | NUR ---
MS RN OPENING NOTES: PATIENT IN BED, AOX3, ON O2 AT 3 LPM VIA NC, BREATHING EVEN AND UNLABORED. BREATH SOUNDS CLEAR TO AUSCULTATION. PATIENT APPEARS CALM AND IN NO DISTRESS, BUT DOES STATE THAT HE HAS MILD, DULL, NON PRESSING, NON RADIATING LEFT SIDED CHEST PAIN SCALED AT 2/10. PATIENT HAS NO PIV AT THIS TIME, PURA REINSERT NEW PIV. PROVIDED FOR COMFORT AND SAFETY. BED IN LOWEST AND LOCKED POSITION, SIDERAILS UP X 3, CALL LIGHT WITHIN REACH. WILL CONT TO MONITOR.
[2017-09-17 20:00] VITALS: BP 114/79
[2017-09-17 22:00] VITALS: BP 114/79
[2017-09-17] MEDS: ATORVASTATIN 10 MG TABLET PO SCH (22:00)
--- NOTE | 2017-09-17 22:00 | NUR ---
RN NOTES: BLOOD SUGAR CHECKED AT 173 MG/DL, ADMINISTERED 3 UNITS REGULAR INSULIN SQ PER SCALE. GAVE LIGHT SNACK. WILL CONT TO MONITOR.
--- NOTE | 2017-09-17 23:09 | NUR ---
SUMANTH NOTES: REINSERTED NEW PIV OVER L HAND G 22. Addendum: 09/18/17 at 0150 by DEBBIE PARRISH RN ERROR: PIV PLACED OVER R HAND, NOT LEFT. G22.
[2017-09-18] VITALS (7 sets, daily range): BP systolic 93–119; BP diastolic 52–86
--- NOTE | 2017-09-18 02:04 | NUR ---
RN NOTES: PATIENT'S O2 SAT DECREASED TO 88% ON ROOM AIR, PLACED PATIENT BACK ON O2 AT 2 LPM VIA NC. O2 SAT RECHECKED AT 95%. MAINTAINED HOB ELEVATED. WILL CONT TO MONITOR.
[2017-09-18] MEDS: MAG HYDROX/AL HYDROX/SIMETH 30 ML UDC PO SCH ×2 (02:30→08:06)
--- NOTE | 2017-09-18 06:45 | NUR ---
MS RN CLOSING NOTES: PATIENT IN BED, AOX3, ON O2 AT 2 LPM VIA NC, BREATHING EVEN AND UNLABORED. APPEARS CALM AND IN NO DISTRESS, DENIES CHEST PAIN/ PAIN AT THIS TIME. PIV OVER R HAND G 22 INTACT AND PATENT TO FLUSH. PROVIDED FOR COMFORT AND SAFETY . BED IN LOWEST AND LOCKED POSITION, SIDERAILS UP X 3. CALL LIGHT WITHIN REACH. WILL ENDORSE TO AM RN FOR LEIGH ANN.
--- NOTE | 2017-09-18 07:20 | NUR ---
RN OPEN NOTES RECEIVED REPORT FROM MINT WAFER DEPOSITOR NURSE. PATIENT IS IN BED WITH HIS EYES CLOSED. PATIENT IS SLEEPY BUT AROUSE FOR CALLING HIS NAME LOUDLY AND DEEP TOUCH. BREATHING IN BILATERALLY EVEN AND UNLABORED. NO SIGNS AND SYMPTOMS OF DISTRESS OR PAIN. BED IN LOW POSITION, LOCKED AND TWO SIDE RAILS ARE UP. CALL LIGHT WITHIN REACH FOR SAFETY. WILL CONTINUE TO MONITOR AND ASSESS PATIENT Addendum: 09/18/17 at 1044 by HO PEPE RN AMENDMENT: PATIENT IS IN BED, AWAKE ALERT AND ORIENTED TO SELF ONLY. CONFUSED. UNABLE TO TELL TIME OR PLACE.
[2017-09-18] MEDS: LINAGLIPTIN 5 MG TABLET PO SCH (08:03)
[2017-09-18] MEDS: BLOOD SUGAR DIAGNOSTIC 1 EACH STRIP IN SCH ×3 (08:04→16:35)
[2017-09-18] MEDS: PANTOPRAZOLE 40 MG TABLET.DR PO SCH (08:04)
[2017-09-18] MEDS: SERTRALINE HCL 50 MG TABLET PO SCH (08:05)
[2017-09-18] MEDS: LEVOTHYROXINE SODIUM 100 MCG TABLET PO SCH (08:05)
[2017-09-18] MEDS: ISOSORBIDE MONONITRATE (30MG) 30 MG TAB.SR.24H PO SCH (08:05)
[2017-09-18] MEDS: CARVEDILOL 6.25 MG TABLET PO SCH ×2 (08:05→16:37)
[2017-09-18] MEDS: APIXABAN 2.5 MG TABLET PO SCH ×2 (08:06→16:36)
[2017-09-18] MEDS: INSULIN REGULAR, HUMAN 100 UNIT/ML 3 ML VIAL SQ PRN ×3 (08:06→16:40)
[2017-09-18] MEDS: FINASTERIDE (5 MG) 5 MG TABLET PO SCH (08:06)
[2017-09-18] MEDS ORDERED: DEXTROSE 50%-WATER 50 ML DISP.SYRIN IV PRN (11:00)
[2017-09-18 12:11] LABS: PTH, INTACT 125 pg/mL (15-65)
[2017-09-18] MEDS: LEVOFLOXACIN 250 MG /D5W 50 ML 250 MG in PREMIX 1 EA IV SCH (12:20)
[2017-09-18] MEDS: DIGOXIN 0.125 MG TABLET PO SCH (12:31)
[2017-09-18] MEDS ORDERED: LEVO500T90 PO (15:09)
[2017-09-18] MEDS ORDERED: CARV6.252 PO (15:09)
--- NOTE | 2017-09-18 17:20 | NUR ---
REPORT GAVE TO SUMANTH SEVILLA AT [facility]. PATIENT IS GOING BACK TO ROOM 127B. PICK TIME IS [id number]
--- NOTE | 2017-09-18 19:27 | NUR ---
MONITOR AND STORAGE BIN TENDER NOTES DISCHARGE NOTES RECEIVED AND CARRIED OUT. PATIENT IS LEAVING IN A STABLE CONDITION. NO SIGNS AND SYMPTOMS OF DISTRESS OR PAIN. REPORT GAVE TO [facility], SUMANTH SEVILLA AT 1720. PATIENT IS GOING TO ROOM 127B. ALL PERSONAL BELONGING WITH PATIENT AT TIME OF DISCHARGE. BELONGING FORM LIST AND DISCHARGE FORM SIGNED BY TWO RNs AND PLACED IN THE CHART. SKIN IS INTACT, NO NEEDS FOR PICTURES. PATIENT PICKED UP BY AMBULANCE AND 2 income tax expert. IV SITE REMOVED. ID BAND REMOVED.
[2017-09-19 10:15] LABS: *SPE A/G RATIO 0.9 (0.7-1.7); *SPE ALBUMIN 3.5 g/dL (2.9-4.4); *SPE ALPHA-1-GLOBULIN 0.2 g/dL (0.0-0.4); *SPE ALPHA-2-GLOBULIN 1.3 g/dL (0.4-1.0); *SPE BETA GLOBULIN 1.2 g/dL (0.7-1.3); *SPE GLOBULIN, TOTAL 3.7 g/dL (2.2-3.9); *SPE M-SPIKE Not Observed g/dL (Not Observed)
== END 2017-09-18 20:41 | DRG 291 ==
LOC: ER 14:39 → TELE1 18:10 → MEDSG1 09-16 10:11
PROVIDERS: ADMIT Internal Medicine; ATTEND Internal Medicine
DX: I13.0 Hypertensive heart and chronic kidney disease with heart failure and stage 1 through stage 4 chronic kidney disease, or unspecified chronic kidney disease (principal); I50.23 Acute on chronic systolic (congestive) heart failure; N17.9 Acute kidney failure, unspecified; D68.59 Other primary thrombophilia; E11.22 Type 2 diabetes mellitus with diabetic chronic kidney disease; I48.91 Unspecified atrial fibrillation; I48.92 Unspecified atrial flutter; N12 Tubulo-interstitial nephritis, not specified as acute or chronic; N18.9 Chronic kidney disease, unspecified; E03.9 Hypothyroidism, unspecified; E78.5 Hyperlipidemia, unspecified; F32.9 Major depressive disorder, single episode, unspecified; I25.10 Atherosclerotic heart disease of native coronary artery without angina pectoris; I42.9 Cardiomyopathy, unspecified; I25.2 Old myocardial infarction; Z86.73 Personal history of transient ischemic attack (TIA), and cerebral infarction without residual deficits; Z79.4 Long term (current) use of insulin; Z79.01 Long term (current) use of anticoagulants; Z79.899 Other long term (current) drug therapy; Z88.0 Allergy status to penicillin; Z98.61 Coronary angioplasty status; K27.9 Peptic ulcer, site unspecified, unspecified as acute or chronic, without hemorrhage or perforation; N40.0 Benign prostatic hyperplasia without lower urinary tract symptoms; T50.2X5A Adverse effect of carbonic-anhydrase inhibitors, benzothiadiazides and other diuretics, initial encounter; Y92.89 Other specified places as the place of occurrence of the external cause
CPT/HCPCS: 36415; 36600; 71045-TC; 76770-TC; 80048-TC; 80053-TC; 80061-TC; 80162-TC; 81000-TC; 82306; 82550-TC; 82570-TC; 82803-TC; 82962-TC; 83735-TC; 83880; 83970; 84100-TC; 84155; 84155-TC; 84165; 84300-TC; 84439-TC; 84443-TC; 84484-TC; 85025-TC; 85730-TC; 87081-TC; 93307-TC; A4216; A4606; J1815; J1940; J1956; J2270; Z7610

== ENCOUNTER 2017-10-07 01:57 | Inpatient (IN) | payer MEDICARE, MEDICAID ==
[~2017-10-07] VITALS: Ht 172.7 cm; Wt 81.6 kg
[2017-10-07] VITALS (26 sets, daily range): BP systolic 87–124; BP diastolic 55–93
[~2017-10-07 01:57] MED LIST changes: +APIX2.5T PO; +ASPI-1169 PO; +ATOR20TA PO; +BISA10SU8 RC; +CALC1TAB30 PO; +CARV6.252 PO; +DIGO125T PO; +FINA5TAB11 PO; +IPRA0.2S9 IH; +ISOS30TA6 PO; +LEVO100T9 PO; +LEVO500T90 PO; +LINA5TAB PO; +MAGN400O6 PO; +MULT-447 PO; +NITR0.4T48 SL; +RANI150C4 PO; +RANO500T3 PO; +SENN-167 PO; +SERT50TA PO; +TAMS0.4C34 PO
--- NOTE | 2017-10-07 02:15 | NUR ---
JOLENE 39 FROM [place] FOR LEFT SIDED CHEST PAIN SINCE MIDNIGHT. PER RA ASA AND NITRO GIVEN EN ROUTE. PAIN 7/10 NONRADIATING LEFT SIDED CHEST PAIN. NO SOB NOTED BUT PRESENTS W/ LOW 02 SATURATION. VSS NAD WILL CONTINUE TO MONITOR FOR ANY CHANGES DURING THE SHIFT
[2017-10-07] MEDS ORDERED: ONDANSETRON HCL/PF 4 MG/2 ML VIAL ONE (02:29)
[2017-10-07] MEDS ORDERED: NTG 50 MG/D5W250 ML BOTTL 250 ML IV ONE ×2 (02:29→02:30)
[2017-10-07] MEDS ORDERED: ONDANSETRON HCL/PF 4 MG/2 ML VIAL IVP ONE (02:30)
[2017-10-07] MEDS ORDERED: MORPHINE SULFATE INJ 2 MG/ML DISP.SYRIN IV ONE (02:30)
[2017-10-07] MEDS ORDERED: MORPHINE SULFATE INJ 4 MG/ML DISP.SYRIN ONE (02:30)
--- NOTE | 2017-10-07 02:35 | NUR ---
PUBLIC STENOGRAPHER AT BEDSIDE
--- NOTE | 2017-10-07 02:45 | NUR ---
HEAD ATHLETIC TRAINER/STRENGTH COACH AT BEDSIDE FOR BLOOD DRAW
[2017-10-07] MEDS ORDERED: AZITHROMYCIN 500 MG VIAL ONE (02:56)
[2017-10-07] MEDS ORDERED: CEFTRIAXONE 1GM BAG (ER ONLY) 50 ML IV ONE ×2 (02:56→03:00)
[2017-10-07] MEDS ORDERED: AZITHROMYCIN 500 MG in IV D5W 250 ML IV ONE (03:00)
--- NOTE | 2017-10-07 03:00 | NUR ---
IVPB NITRO DRIP STOPPED BY MD SAUCEDA
[2017-10-07 03:11] LABS: BASOPHILS % (AUTO) 0.4 % (0.0-2.0); EOSINOPHILS # (AUTO) 0.3 /CMM (0.0-0.7); EOSINOPHILS % (AUTO) 3.2 % (0.0-6.0); HEMATOCRIT 34 % (39-51); HEMOGLOBIN 11.6 g/dL (13.5-17.5); LYMPHOCYTES # (AUTO) 0.9 /CMM (0.8-4.8); LYMPHOCYTES % (AUTO) 8.6 % (20.0-44.0); MEAN CORPUSCULAR HEMOGLOBIN 30 PG (26.0-33.0); MEAN CORPUSCULAR HGB CONC 34 g/dl (31.0-36.0); MEAN CORPUSCULAR VOLUME 89 fL (80-96); MONOCYTES # (AUTO) 0.5 /CMM (0.1-1.30); MONOCYTES % (AUTO) 4.6 % (2.0-12.0); NEUTROPHILS # (AUTO) 8.9 /CMM (1.8-8.9); NEUTROPHILS % (AUTO) 83.2 % (43.0-81.0); PLATELET COUNT (AUTO) 165 /CMM (150-450); RDW COEFFICIENT OF VARIATION 16.7 (11.5-15.0); RED BLOOD CELL COUNT(AUTO) 3.85 MIL/uL (4.5-6.0); WHITE BLOOD COUNT (AUTO) 10.8 K/uL (4.3-11.0)
[2017-10-07 03:22] LABS: CALCIUM, SERUM 8.2 mg/dL (8.5-10.1); CARBON DIOXIDE 24 mmol/L (21-32); CHLORIDE 107 mmol/L (98-107); CREATININE 1.6 mg/dL (0.6-1.3); GLUCOSE 299 mg/dL (74-106); POTASSIUM 4.6 mmol/L (3.5-5.1); SODIUM SERUM 140 mmol/L (136-145); UREA NITROGEN, BLOOD 34 mg/dL (7-18)
[2017-10-07 03:28] LABS: D-DIMER 1.93 mg/L(FEU (0.17-0.50); INR 1.04 (0.87-1.13)
[2017-10-07 03:30] LABS: TROPONIN I < 0.017 ng/mL (0.00-0.056)
[2017-10-07 03:34] LABS: ALANINE AMINOTRANSFERASE 21 U/L (12-78); ALBUMIN 3.1 g/dL (3.4-5.0); ALKALINE PHOSPHATASE 81 U/L (46-116); ASPARTATE AMINOTRANSFERASE 16 U/L (15-37); B-TYPE NATRIURETIC PEPTIDE 13186 PG/ML (0-125); BILIRUBIN,DIRECT 0.2 mg/dL (0.0-0.2); BILIRUBIN,TOTAL 0.7 mg/dL (0.2-1.0); TOTAL PROTEIN, SERUM 6.6 g/dL (6.4-8.2)
[2017-10-07] MEDS ORDERED: ENOXAPARIN SODIUM 60 MG/0.6 ML DISP.SYRIN SQ ONE ×2 (03:55→04:00)
[2017-10-07] MEDS ORDERED: ENOXAPARIN SODIUM 30 MG/0.3 ML DISP.SYRIN ONE (03:55)
--- NOTE | 2017-10-07 05:00 | NUR ---
OFF TO NUCLEAR MEDICINE
--- NOTE | 2017-10-07 05:47 | NUR ---
AWAITING PT ARRIVAL BACK FROM NUCLEAR MEDICINE
--- NOTE | 2017-10-07 06:12 | NUR ---
PT BACK FROM NUCLEAR MEDICINE
--- NOTE | 2017-10-07 06:18 | NUR ---
ADMISSION AT CHANGE OF SHIFT
[2017-10-07] MEDS ORDERED: *INSULIN REGULAR(HUMULIN R)HUM 100 UNIT/ML VIAL SQ PRN (06:30)
[2017-10-07] MEDS ORDERED: INSULIN REGULAR, HUMAN 100 UNIT/ML 3 ML VIAL SQ PRN (06:30)
[2017-10-07] MEDS ORDERED: NITROGLYCERIN 0.4 MG/TAB BOTTLE SL PRN (06:30)
[2017-10-07] MEDS ORDERED: DIGOXIN 0.125 MG TABLET PO SCH (06:30)
[2017-10-07] MEDS ORDERED: IPRATROPIUM NEB FS 0.5 MG/2.5 ML AMPUL.NEB IH PRN (06:30)
[2017-10-07] MEDS ORDERED: MORPHINE SULFATE INJ 2 MG/ML DISP.SYRIN IV PRN (06:30)
[2017-10-07] MEDS ORDERED: BISACODYL SUPP (10 MG) 10 MG/SUPP.RECT SUPP.RECT RC PRN (06:30)
[2017-10-07] MEDS ORDERED: DEXTROSE 50%-WATER 50 ML DISP.SYRIN IV PRN ×2 (06:30→10:00)
--- NOTE | 2017-10-07 06:33 | NUR ---
NM: LUNG V/Q WAS COMPLETED. TECH:RB
--- NOTE | 2017-10-07 07:05 | NUR ---
RECEIVED REPORT FOR LEIGH ANN.
--- NOTE | 2017-10-07 07:26 | NUR ---
RN NOTE MAGNESIUM 1G IVPB WAS SCANNED AND HUNG @ 5475. IV SPREADSHEET DOES NOT SHOW THAT IT WAS HUNG, THUS IV SPREADSHEET WAS NOT COMPLETED FOR MAGNESIUM 1G IVPB.
[2017-10-07] MEDS: PANTOPRAZOLE 40 MG TABLET.DR PO SCH (07:30)
[2017-10-07] MEDS ORDERED: BLOOD SUGAR DIAGNOSTIC 1 EACH STRIP VI SCH (07:30)
--- NOTE | 2017-10-07 07:45 | NUR ---
REPORT GIVEN TO RN, AFSATU FOR LEIGH ANN UPON ADMISSION.
--- NOTE | 2017-10-07 08:13 | NUR ---
PATIENT TRANSPORTED TO [facility] VIA ACLS PROTOCOL FOR ADMISSION. RN, AFSATU TO PROVIDE LEIGH ANN.
--- NOTE | 2017-10-07 08:29 | NUR ---
PRODUCT FINISHERDEDICATED OWNER OPERATOR NOTES RECEIVED PT FROM ER NURSE IN STABLE CONDITION. PT WILL BE ADMITTED FOR CHF. UNABLE TO ASSESS MENTAL STATUS AT THIS TIME PT IS IN DEEP SLEEP, HOWEVER HE IS AROUSABLE. IV NOTED TO LEFT AC 18 G, AND RIGHT HAND 20G. PT IS ON 2L VIA NC AND SATING WELL @ 98%. VITALS STABLE AT THIS TIME. NO SOB OR SIGNS OF DISTRESS NOTED. BREATHING IS EVEN AND UNLABORED. PT IS SINUS TACH ON THE TELE MONITOR WITH A HR OF 109. ORDERS NOTED BY MD. BED IN LOW LOCKED POSITION, SIDE RAILS UP X3, CALL LIGHT WITHIN REACH, BED ALARM ON. WILL CONTINUE TO MONITOR
[2017-10-07 08:35] LABS: ABG BASE EXCESS -4.2 mmol/L; ABG OXYGEN SATURATION 92.6 % (92.0-98.5); ABG PCO2 50.9 mmHg (35.0-45.0); ABG PH 7.273 (7.350-7.450); ABG PO2 76.1 mmHg (75.0-100.0); AaDO2 150.6 mmHg; COHb 1.3 % (0.5-1.5); MetHb 0.2 % (0.0-1.5); O2Hb 91.2 % (94.0-97.0); SITE, ABG Right Radial; VENT MODE, BG NC 4L
[2017-10-07] MEDS: CARVEDILOL 6.25 MG TABLET PO SCH ×2 (09:00→16:13)
[2017-10-07] MEDS: LINAGLIPTIN 5 MG TABLET PO SCH (09:00)
[2017-10-07] MEDS ORDERED: BUMETANIDE INJ 0.25 MG/ML VIAL IV SCH (09:00)
[2017-10-07] MEDS: SERTRALINE HCL 50 MG TABLET PO SCH (09:00)
[2017-10-07] MEDS: FINASTERIDE (5 MG) 5 MG TABLET PO SCH (09:00)
[2017-10-07] MEDS: ASPIRIN 81 MG TAB.CHEW PO SCH (09:00)
[2017-10-07] MEDS: ISOSORBIDE MONONITRATE (30MG) 30 MG TAB.SR.24H PO SCH (09:00)
[2017-10-07] MEDS: APIXABAN 2.5 MG TABLET PO SCH ×2 (09:00→16:13)
[2017-10-07] MEDS ORDERED: Medication Not On Formulary EA (Ranolazine (Ranexa) 500 MG) PO SCH (09:00)
--- NOTE | 2017-10-07 09:00 | NUR ---
PRACTICE ASSISTANT- Initial Note Received pt as transfer from via bed. Pt lethargic but arousable to deep tactile stimuli. On 4L NC, no sob or distress present. Bedside monitor reveals Sinus Tachycardia. Two IVs present: 1) LAC 18G HL and 2) Right hand 20G HL. Both IVS flushed, patent and intact. Pt incontinent of urine & stool, diaper clean & dry. Safety measures taken: bed locked and in low position, side rails up x2, bed alarm on, will continue to monitor.
--- NOTE | 2017-10-07 09:10 | NUR ---
LINE OUT WORKER NOTES MORNING CARE PROVIDED TO PT. PT'S BREATHING BECAME MORE LABORED AND ACCESSORY MUSCLES WERE USED TO COMPENSATE. CHARGE NURSE AND MD MADE AWARE. ABGS ORDERED. PT WAS TRANSFERRED TO ICU BED 263 VIA ACLS TRANSPORT. REPORT GIVEN TO MICHELLE THE RECEIVING NURSE CHRISTOPH WILL ADMIT PT AND CONTINUE CARE.
[2017-10-07] MEDS: LEVOTHYROXINE SODIUM 100 MCG TABLET PO SCH (09:18)
[2017-10-07] MEDS: MULTIVIT, IRON, MIN NO. 8, FA 1 TAB PO SCH (09:20)
[2017-10-07] MEDS: CALCIUM CARB 600MG /VIT D 1 EACH TABLET PO SCH ×2 (09:20→16:13)
--- NOTE | 2017-10-07 09:30 | NUR ---
SALES ASSOCIATE KEY HOLDER- Pt placed on bipap by RT. Will continue to monitor.
--- NOTE | 2017-10-07 09:30 | NUR ---
PT. 67 Y OLD MALE REC. IN ICU AND PLACED ON BIPAP POST ABG WITH NOTED SETTINGS PER MD ORDER. ALARMS AR E SET AND FUNCTIONAL,. CONTINUE FOR CARE AND MONITORING. B/S RALES BILATERALLY. AND AMBU BAG REMAIN AT THE BEDSIDE. Addendum: 10/07/17 at 0933 by LUCIANA GONZALEZ RT Amended: Links added.
[2017-10-07] MEDS: FUROSEMIDE 100 MG/10 ML VIAL IV SCH ×3 (09:53→17:30)
--- NOTE | 2017-10-07 11:30 | NUR ---
BREASTFEEDING PEER COUNSELOR- ABGs done by RT. Results given to Dr. Fair for review. Bipap changes by RT made as ordered by md. Will continue to monitor.
[2017-10-07 11:33] LABS: ABG BASE EXCESS -2.2 mmol/L; ABG OXYGEN SATURATION 96.4 % (92.0-98.5); ABG PCO2 50.4 mmHg (35.0-45.0); ABG PH 7.306 (7.350-7.450); ABG PO2 103.2 mmHg (75.0-100.0); COHb 1.1 % (0.5-1.5); MetHb 0.4 % (0.0-1.5); SITE, ABG Right Radial; VENT MODE, BG BIPAP 15/5 PS 10
[2017-10-07] MEDS: BLOOD SUGAR DIAGNOSTIC 1 EACH STRIP IN SCH ×3 (11:56→23:52)
[2017-10-07] MEDS: DIGOXIN 0.125 MG TABLET PO SCH (12:22)
[2017-10-07 15:09] LABS: ABG BASE EXCESS 0.7 mmol/L; ABG OXYGEN SATURATION 90.7 % (92.0-98.5); ABG PCO2 52.4 mmHg (35.0-45.0); ABG PH 7.335 (7.350-7.450); ABG PO2 65.2 mmHg (75.0-100.0); AaDO2 159.7 mmHg; COHb 0.7 % (0.5-1.5); MetHb 0.6 % (0.0-1.5); O2Hb 89.5 % (94.0-97.0); SITE, ABG Right Radial; VENT MODE, BG BIPAP 18/5 PS 13
--- NOTE | 2017-10-07 18:35 | NUR ---
PT. 67 Y OLD MALE REMAIN ON BIPAP, WITH NOTED SETTINGS, ALARMS ARE SET AND FUNCTIONAL. PT. STABLE AND B/S BILATERALLY RALES AND EQUAL CHEST RISE NOTED, AMBU BAG REMAIN AT THE BEDSIDE. AND CONTINUE FOR CARE AND MONITORING. BIPAP CHANGES PER DR. MONGE. REPORT WILL PASS TO PM SHIFT. Addendum: 10/07/17 at 1837 by LUCIANA GONZALEZ RT Amended: Links added.
--- NOTE | 2017-10-07 21:00 | NUR ---
RN NOTE NOTIFIED DR WALDROP PT MAGNESIUM IS 1.7. RECEIVED ORDERS TO GIVE 1G IVPB MAGNESIUM. READBACK ORDERS PERFORMED.
[2017-10-07] MEDS: TAMSULOSIN 0.4 MG CAP.SR.24H PO SCH (21:10)
[2017-10-07] MEDS: HYDROMORPHONE INJ 0.5 MG/0.5 ML SYRINGE IV PRN (21:10)
[2017-10-07] MEDS: SENNOSIDES 8.6 MG TABLET PO SCH (21:10)
[2017-10-07] MEDS: ATORVASTATIN 10 MG TABLET PO SCH (21:10)
[2017-10-07 21:14] LABS: MAGNESIUM 1.7 mg/dL (1.8-2.4); POTASSIUM 3.9 mmol/L (3.5-5.1)
[2017-10-07 21:22] LABS: TROPONIN I < 0.017 ng/mL (0.00-0.056)
[2017-10-07] MEDS ORDERED: Magnesium 1 GM/2 ML VIAL IV ONE (22:00)
[2017-10-07] MEDS ORDERED: Magnesium 1GM/D5W 100ML PREMIX PIGGYBACK IV ONE (22:30)
[2017-10-08] VITALS (27 sets, daily range): BP systolic 84–123; BP diastolic 25–90
--- NOTE | 2017-10-08 04:00 | NUR ---
RN NOTE PT SWITCHED TO NASAL CANNULA DUE TO REMOVING BIPAP MASK NUMEROUS TIMES. PT TOLERATING NC WELL WITH O2 SAT @ 93-96%. RT MADE AWARE.
[2017-10-08 05:07] LABS: EOSINOPHILS # (AUTO) 0.4 /CMM (0.0-0.7); EOSINOPHILS % (AUTO) 4.5 % (0.0-6.0); HEMATOCRIT 39 % (39-51); HEMOGLOBIN 12.9 g/dL (13.5-17.5); LYMPHOCYTES # (AUTO) 0.9 /CMM (0.8-4.8); LYMPHOCYTES % (AUTO) 9.3 % (20.0-44.0); MEAN CORPUSCULAR HEMOGLOBIN 30 PG (26.0-33.0); MEAN CORPUSCULAR HGB CONC 33 g/dl (31.0-36.0); MEAN CORPUSCULAR VOLUME 90 fL (80-96); MONOCYTES # (AUTO) 0.3 /CMM (0.1-1.30); MONOCYTES % (AUTO) 3.5 % (2.0-12.0); NEUTROPHILS # (AUTO) 8.1 /CMM (1.8-8.9); NEUTROPHILS % (AUTO) 82.7 % (43.0-81.0); PLATELET COUNT (AUTO) 164 /CMM (150-450); RDW COEFFICIENT OF VARIATION 16.2 (11.5-15.0); RED BLOOD CELL COUNT(AUTO) 4.28 MIL/uL (4.5-6.0); WHITE BLOOD COUNT (AUTO) 9.8 K/uL (4.3-11.0)
[2017-10-08] MEDS: BLOOD SUGAR DIAGNOSTIC 1 EACH STRIP IN SCH ×4 (05:24→23:49)
[2017-10-08] MEDS: INSULIN REGULAR, HUMAN 100 UNIT/ML 3 ML VIAL SQ PRN ×4 (05:26→23:52)
[2017-10-08 05:28] LABS: TROPONIN I < 0.017 ng/mL (0.00-0.056)
[2017-10-08 05:39] LABS: ALANINE AMINOTRANSFERASE 28 U/L (12-78); ALBUMIN 3.2 g/dL (3.4-5.0); ALKALINE PHOSPHATASE 74 U/L (46-116); ASPARTATE AMINOTRANSFERASE 27 U/L (15-37); BILIRUBIN,TOTAL 0.8 mg/dL (0.2-1.0); CALCIUM, SERUM 8.4 mg/dL (8.5-10.1); CARBON DIOXIDE 31 mmol/L (21-32); CHLORIDE 107 mmol/L (98-107); CREATININE 1.8 mg/dL (0.6-1.3); GLUCOSE 190 mg/dL (74-106); MAGNESIUM 2.1 mg/dL (1.8-2.4); PHOSPHORUS 4.4 mg/dL (2.5-4.9); POTASSIUM 3.6 mmol/L (3.5-5.1); SODIUM SERUM 147 mmol/L (136-145); TOTAL PROTEIN, SERUM 7.1 g/dL (6.4-8.2); UREA NITROGEN, BLOOD 28 mg/dL (7-18)
[2017-10-08 05:59] LABS: CHOLESTEROL 145 mg/dL (<200); HDL CHOLESTEROL 39 mg/dL (40-60); LDL 81 mg/dL (0-99); THYROID STIMULATING HORMONE 12.088 uIU/mL (0.358-3.74); TRIGLYCERIDES 234 mg/dL (30-150)
--- NOTE | 2017-10-08 06:45 | NUR ---
RN NOTE PT REMAINS IN NO ACUTE DISTRESS IN BED. PT DID NOT HAVE ANY SIGNIFICANT CHANGE IN CONDITION DURING SHIFT. PT SHOWED NO S/S OF SOB, DIFFICULTY BREATHING OR PAIN AT THIS TIME. PT PLACED ON NASAL CANNULA DUE TO REMOVAL OF BIPAP MASK NUMEROUS TIMES DURING SHIFT. PT TOLERATING NASAL CANNULA WITH O2 SAT @ 93-96%. WILL ENDORSE CARE TO AM RN FOR CONTINUITY OF CARE.
[2017-10-08] MEDS: PANTOPRAZOLE 40 MG TABLET.DR PO SCH (07:30)
[2017-10-08] MEDS: LEVOTHYROXINE SODIUM 100 MCG TABLET PO SCH (07:30)
--- NOTE | 2017-10-08 07:45 | NUR ---
ICU/RN - Initial Notes Received pt in bed with eyes closed. Arousable to verbal stimuli, alert to self. Reorientation to place and time provided to pt. On O2 @ 4lpm via nasal cannula, no respiratory distress. Denies pain or discomfort. Mathis catheter intact draining urine to gravity. Pt kept NPO as ordered. Safety and comfort measures in place. Will continue to monitor pt closely.
[2017-10-08] MEDS: SERTRALINE HCL 50 MG TABLET PO SCH (08:24)
[2017-10-08] MEDS: CALCIUM CARB 600MG /VIT D 1 EACH TABLET PO SCH ×2 (08:24→16:01)
[2017-10-08] MEDS: ASPIRIN 81 MG TAB.CHEW PO SCH (08:24)
[2017-10-08] MEDS: LINAGLIPTIN 5 MG TABLET PO SCH (08:24)
[2017-10-08] MEDS: MULTIVIT, IRON, MIN NO. 8, FA 1 TAB PO SCH (08:24)
[2017-10-08] MEDS: FINASTERIDE (5 MG) 5 MG TABLET PO SCH (08:24)
[2017-10-08] MEDS: APIXABAN 2.5 MG TABLET PO SCH ×2 (08:24→16:01)
[2017-10-08] MEDS: CARVEDILOL 6.25 MG TABLET PO SCH ×2 (08:24→16:01)
[2017-10-08] MEDS: ISOSORBIDE MONONITRATE (30MG) 30 MG TAB.SR.24H PO SCH (08:24)
[2017-10-08 10:20] LABS: ABG OXYGEN SATURATION 95.6 % (92.0-98.5); ABG PCO2 44.1 mmHg (35.0-45.0); ABG PH 7.464 (7.350-7.450); ABG PO2 80.8 mmHg (75.0-100.0); SITE, ABG Left Radial
[2017-10-08 10:21] LABS: ABG BASE EXCESS 6.4 mmol/L; COHb 0.7 % (0.5-1.5); MetHb 0.4 % (0.0-1.5); O2Hb 94.5 % (94.0-97.0); VENT MODE, BG nasal cannula
[2017-10-08] MEDS ORDERED: POTASSIUM CHLORIDE 20 MEQ TAB.PRT.SR PO SCH (11:00)
[2017-10-08] MEDS ORDERED: FUROSEMIDE 100 MG/10 ML VIAL IV SCH (11:00)
--- NOTE | 2017-10-08 15:00 | NUR ---
ICU/RN - Notes Swallow evaluation done. Pt assisted with lunch, ate 100% with no s/s of aspiration.
--- NOTE | 2017-10-08 19:00 | NUR ---
ICU/RN - Notes No significant change in pt's condition. Pt cleared for KRISTINA status per hospital scientist. Pt ate 100% of dinner. No acute distress.
--- NOTE | 2017-10-08 19:30 | NUR ---
RN INITIAL NOTES RECEIVED PT AWAKE ON BED, A/O X2. ON 4L NASAL CANNULA, SATURATING WELL, NO S/S OF RESP DISTRESS. DENIES ANY PAIN. PT IS SINUS TACH ON THE MONITOR, HR 120'S. SINGH CATH IS INTACT. LEFT AC 18G AND RIGHT HAND 20G BOTH FLUSHED AND PATENT, NO S/S OF INFILTRATION/INFECTION, DRESSINGS CDI. BED LOW AND LOCKED, SIDERAILS UP, CALL LIGHT WITHIN REACH. WILL MONITOR Addendum: 10/08/17 at 2016 by KOEN SWAYER RN RIGHT UPPER ARM MIDLINE FLUSHED AND PATENT, NO S/S OF INFILTRATION/INFECTION, DRESSING CDI.
--- NOTE | 2017-10-08 20:50 | NUR ---
RN NOTES REPORT GIVEN TO KRISTINA RN GEORGE FOR PT TRANSFER TO ROOM 120
--- NOTE | 2017-10-08 21:20 | NUR ---
KRISTINA RN NOTE RECEIVED PT FROM ICU, A/O X 2 FORGETFULL, NO DISTRESS OR DISCOMFORT NOTED. DENIES PAIN. ON O2 4L VIA N/C O2 SAT 97%. ON TELE S TACH HR 118. F/C INTACT AND PATENT DRAINING YELLOWISH COLOR URINE. LAC #18G, RT HAND #20 G AND JOCELYNE MIDLINE INTACT AND PATENT. ORIENTED THE PT TO HIS ROOM. SIDE RAILS UP X 3 AND CALL LIGHT WITHIN REACH. VSS. CONTINUE TO MONITOR HIM.
[2017-10-08] MEDS: SENNOSIDES 8.6 MG TABLET PO SCH (21:40)
[2017-10-08] MEDS: TAMSULOSIN 0.4 MG CAP.SR.24H PO SCH (21:40)
[2017-10-08] MEDS: ATORVASTATIN 10 MG TABLET PO SCH (21:40)
--- NOTE | 2017-10-08 23:00 | NUR ---
KRISTINA RN NOTE PT IS FORGETFUL, KEPT ON GETTING OUT BED, STATES "I HAVE TO PEE". REMINDED PT THAT HE IS CONNECTED WITH F/C. ALSO PT DON'T WANT DVT SLEEVES ON. EXPLAINED HIM THE IMPORTANCE OF THE DVT PUMP.
[2017-10-09] VITALS (7 sets, daily range): BP systolic 92–122; BP diastolic 53–88
--- NOTE | 2017-10-09 | NUR ---
KRISTINA RN NOTE PT IS KEPT ON C/O HE WANTED TO PEE. PT IS FORGETFULL AND REMINDED PT THAT HE IS URINATING THROUGH F/C.
[2017-10-09] MEDS: BLOOD SUGAR DIAGNOSTIC 1 EACH STRIP IN SCH ×4 (05:25→23:41)
[2017-10-09] MEDS: INSULIN REGULAR, HUMAN 100 UNIT/ML 3 ML VIAL SQ PRN ×4 (05:29→23:42)
--- NOTE | 2017-10-09 06:37 | NUR ---
KRISTINA RN NOTE PT IN BED ASLEEP, AROUSABLE. NO DISTRESS OR DISCOMFORT NOTED. DENIES PAIN. F/C INTACT AND PATENT DRIAINING YELLOWISH COLOR URINE. SIDE RAILS UP X 3 AND CALL LIGHT WITHIN REACH. WILL ENDORSE TO DAY SHIFT NURSE FOR CONTINUE TO CARE.
--- NOTE | 2017-10-09 07:14 | NUR ---
RN NOTES RECEIVED PT FROM CUSTOMS AND IMMIGRATION OFFICER, A&0X2, FORGETFUL ON 4L NC SATING WELL NO SOB OR DISTRESS NOTED. SINUS TACH ON THE TELE DELANO HR 120. SINGH DRAINING TO GRAVITY. BED LOCKED AND IN LOWEST POSITION, CALL LIGHT WITHIN REACH, SIDE RAILS UPX3, WILL CONT TO DELANO.
[2017-10-09] MEDS: ASPIRIN 81 MG TAB.CHEW PO SCH (08:11)
[2017-10-09] MEDS: LINAGLIPTIN 5 MG TABLET PO SCH (08:11)
[2017-10-09] MEDS: ISOSORBIDE MONONITRATE (30MG) 30 MG TAB.SR.24H PO SCH (08:11)
[2017-10-09] MEDS: APIXABAN 2.5 MG TABLET PO SCH ×2 (08:12→16:56)
[2017-10-09] MEDS: MULTIVIT, IRON, MIN NO. 8, FA 1 TAB PO SCH (08:12)
[2017-10-09] MEDS: CALCIUM CARB 600MG /VIT D 1 EACH TABLET PO SCH ×2 (08:12→16:56)
[2017-10-09] MEDS: FINASTERIDE (5 MG) 5 MG TABLET PO SCH (08:12)
[2017-10-09] MEDS: LEVOTHYROXINE SODIUM 100 MCG TABLET PO SCH (08:12)
[2017-10-09] MEDS: PANTOPRAZOLE 40 MG TABLET.DR PO SCH (08:12)
[2017-10-09] MEDS: SERTRALINE HCL 50 MG TABLET PO SCH (08:12)
[2017-10-09] MEDS: CARVEDILOL 6.25 MG TABLET PO SCH ×2 (08:12→16:56)
[2017-10-09 08:50] LABS: BASOPHILS % (AUTO) 0.5 % (0.0-2.0); EOSINOPHILS # (AUTO) 0.3 /CMM (0.0-0.7); EOSINOPHILS % (AUTO) 3.7 % (0.0-6.0); HEMATOCRIT 38 % (39-51); HEMOGLOBIN 12.7 g/dL (13.5-17.5); LYMPHOCYTES # (AUTO) 1.1 /CMM (0.8-4.8); MEAN CORPUSCULAR HEMOGLOBIN 30 PG (26.0-33.0); MEAN CORPUSCULAR HGB CONC 34 g/dl (31.0-36.0); MEAN CORPUSCULAR VOLUME 89 fL (80-96); MONOCYTES # (AUTO) 0.6 /CMM (0.1-1.30); NEUTROPHILS # (AUTO) 7.1 /CMM (1.8-8.9); NEUTROPHILS % (AUTO) 76.8 % (43.0-81.0); PLATELET COUNT (AUTO) 185 /CMM (150-450); RDW COEFFICIENT OF VARIATION 15.9 (11.5-15.0); RED BLOOD CELL COUNT(AUTO) 4.23 MIL/uL (4.5-6.0); WHITE BLOOD COUNT (AUTO) 9.2 K/uL (4.3-11.0)
[2017-10-09 08:59] LABS: BILIRUBIN,TOTAL 0.9 mg/dL (0.2-1.0); CALCIUM, SERUM 8.5 mg/dL (8.5-10.1); CREATININE 1.5 mg/dL (0.6-1.3); MAGNESIUM 2.1 mg/dL (1.8-2.4); PHOSPHORUS 4.4 mg/dL (2.5-4.9); POTASSIUM 3.8 mmol/L (3.5-5.1); TOTAL PROTEIN, SERUM 6.8 g/dL (6.4-8.2)
[2017-10-09] MEDS ORDERED: IV D5W 100 ML IV ONE (11:30)
[2017-10-09] MEDS ORDERED: BUMETANIDE INJ 4 MG in IV D5W 24 ML IV ONE (12:00)
[2017-10-09] MEDS: DIGOXIN 0.125 MG TABLET PO SCH (12:07)
[2017-10-09] MEDS ORDERED: FUROSEMIDE 40 MG/4 ML VIAL IV ONE (12:30)
[2017-10-09] MEDS ORDERED: FUROSEMIDE 20 MG/2 ML VIAL IV SCH (12:30)
[2017-10-09] MEDS: FUROSEMIDE 20 MG/2 ML VIAL IV SCH ×10 (14:21→23:28)
--- NOTE | 2017-10-09 17:30 | NUR ---
RN NOTES REPORT GIVEN TO SUMANTH RAO FOR CONTINUITY OF CARE.
--- NOTE | 2017-10-09 18:00 | NUR ---
RN NOTES ASSUMED PT CARE FROM SUMANTH VYAS;PT AWAKE AND ORIENTED, DENIES PAIN.REMAINS ON SINUS TACH ON THE MONITOR BUT ASYMPTOMATIC, SAFETY ENSURED. SINGH IN PLACE AND DRAINING THRU GRAVITY TO FÁTIMA COLORED URINE OUTPUT. REMAINS ON O2 INH
--- NOTE | 2017-10-09 19:30 | NUR ---
ELECTRICAL APPRENTICE INITIAL NOTES RECEIVED PATIENT AWAKE A/OX3, FORGETFUL. DENIES PAIN OR DISCOMFORT. DENIES SOB. SKIN WARM AND DRY TO TOUCH. RESPIRATIONS EVEN AND UNLABORED, ON 4LPMO2 VIA NC. ON TELE MONITOR ST WITH BBB 121. F/C PATENT AND INTACT, DRAINING BY GRAVITY. WITH JOCELYNE MIDLINE PATENT AND INTACT. REMINDED TO USE CALL LIGHT WHEN ASSISTANCE IS NEEDED. PATIENT VERBALIZED UNDERSTANDING. BED ALARM ON. HOB ELEVATED. SIDE RAILS UP AND LOCKED. BED KEPT AT LOWEST POSITION. CALL LIGHT IN HAND. WILL CONTINUE TO MONITOR.
[2017-10-09] MEDS: TAMSULOSIN 0.4 MG CAP.SR.24H PO SCH (21:04)
[2017-10-09] MEDS: ATORVASTATIN 10 MG TABLET PO SCH (21:04)
[2017-10-09] MEDS: SENNOSIDES 8.6 MG TABLET PO SCH ×2 (21:05→22:00)
[2017-10-10] VITALS (8 sets, daily range): BP systolic 102–123; BP diastolic 71–89
[2017-10-10] MEDS: FUROSEMIDE 20 MG/2 ML VIAL IV SCH ×2 (00:28→01:45)
[2017-10-10] MEDS ORDERED: FUROSEMIDE 20 MG/2 ML VIAL ONE (01:44)
--- NOTE | 2017-10-10 07:06 | NUR ---
TRAVEL SERVICES PROFESSIONAL CLOSING NOTES NO SIGNIFICANT CHANGES OVERNIGHT. NO C/O PAIN OR DISCOMFORT. NO C/O SOB. ALL NEEDS ANTICIPATED AND MET. NEEDS FREQUENT REMINDERS. FALL PRECAUTIONS OBSERVED. ALL SAFETY MEASURES MET. SIDE RAILS UP AND LOCKED. BED KEPT AT LOWEST POSITION. CALL LIGHT KEPT WITHIN EASY REACH. BED ALARM ON. WILL ENDORSE CONTINUITY OF CARE TO AM NURSE.
[2017-10-10 07:15] LABS: BASOPHILS % (AUTO) 0.4 % (0.0-2.0); EOSINOPHILS # (AUTO) 0.4 /CMM (0.0-0.7); EOSINOPHILS % (AUTO) 4.9 % (0.0-6.0); HEMATOCRIT 38 % (39-51); LYMPHOCYTES # (AUTO) 1.3 /CMM (0.8-4.8); LYMPHOCYTES % (AUTO) 15.2 % (20.0-44.0); MEAN CORPUSCULAR HEMOGLOBIN 30 PG (26.0-33.0); MEAN CORPUSCULAR HGB CONC 34 g/dl (31.0-36.0); MEAN CORPUSCULAR VOLUME 89 fL (80-96); MONOCYTES # (AUTO) 0.6 /CMM (0.1-1.30); MONOCYTES % (AUTO) 7.4 % (2.0-12.0); NEUTROPHILS # (AUTO) 6.2 /CMM (1.8-8.9); NEUTROPHILS % (AUTO) 72.1 % (43.0-81.0); PLATELET COUNT (AUTO) 169 /CMM (150-450); RDW COEFFICIENT OF VARIATION 16.2 (11.5-15.0); RED BLOOD CELL COUNT(AUTO) 4.32 MIL/uL (4.5-6.0); WHITE BLOOD COUNT (AUTO) 8.6 K/uL (4.3-11.0)
[2017-10-10 07:53] LABS: CALCIUM, SERUM 8.4 mg/dL (8.5-10.1); CREATININE 1.4 mg/dL (0.6-1.3); MAGNESIUM 1.8 mg/dL (1.8-2.4); POTASSIUM 3.3 mmol/L (3.5-5.1)
--- NOTE | 2017-10-10 08:24 | NUR ---
RN Notes Still sleeping, no facial grimacing noted. Breathing is even and unlabored. With IV access on right upper arm midline catheter patent and intact. with FC with yellowish urine.
[2017-10-10] MEDS ORDERED: POTASSIUM CHLORIDE 20 MEQ TAB.PRT.SR PO SCH (09:30)
[2017-10-10] MEDS ORDERED: BUMETANIDE INJ 8 MG in IV NS 0.9% 48 ML IV ONE (09:30)
[2017-10-10] MEDS: SERTRALINE HCL 50 MG TABLET PO SCH (09:38)
[2017-10-10] MEDS: CALCIUM CARB 600MG /VIT D 1 EACH TABLET PO SCH ×2 (09:39→16:33)
[2017-10-10] MEDS: ASPIRIN 81 MG TAB.CHEW PO SCH (09:39)
[2017-10-10] MEDS: MULTIVIT, IRON, MIN NO. 8, FA 1 TAB PO SCH (09:39)
[2017-10-10] MEDS: CARVEDILOL 6.25 MG TABLET PO SCH ×2 (09:39→16:34)
[2017-10-10] MEDS: ISOSORBIDE MONONITRATE (30MG) 30 MG TAB.SR.24H PO SCH (09:39)
[2017-10-10] MEDS: LINAGLIPTIN 5 MG TABLET PO SCH (09:39)
[2017-10-10] MEDS: LEVOTHYROXINE SODIUM 100 MCG TABLET PO SCH (09:40)
[2017-10-10] MEDS: FINASTERIDE (5 MG) 5 MG TABLET PO SCH (09:40)
[2017-10-10] MEDS: APIXABAN 2.5 MG TABLET PO SCH ×2 (09:40→16:33)
[2017-10-10] MEDS: BLOOD SUGAR DIAGNOSTIC 1 EACH STRIP IN SCH ×4 (09:44→21:14)
[2017-10-10] MEDS: INSULIN REGULAR, HUMAN 100 UNIT/ML 3 ML VIAL SQ PRN ×4 (09:46→21:35)
[2017-10-10] MEDS: PANTOPRAZOLE 40 MG TABLET.DR PO SCH (09:50)
[2017-10-10] MEDS: POTASSIUM CHLORIDE 20 MEQ TAB.PRT.SR PO SCH ×5 (10:00→14:55)
[2017-10-10 11:39] LABS: IRON, SERUM 51 ug/dl (50-175); TOTAL IRON BINDING CAPACITY 367 ug/dl (250-450)
[2017-10-10 12:14] LABS: FERRITIN 94 ng/mL (8-388)
[2017-10-10] MEDS: FUROSEMIDE 40 MG/4 ML VIAL IV SCH ×3 (12:36→21:14)
--- NOTE | 2017-10-10 19:01 | NUR ---
RN Notes Resting fairly with no complain at this time. Ambulate to the bathroom with assist. Needs anticipated. No untoward symptom noted within the shift. Will endorse to warehouse worker 2nd shift nurse for continuity of care.
--- NOTE | 2017-10-10 19:35 | NUR ---
BOARD CERTIFIED FAMILY PHYSICIAN INITIAL NOTE PT RECEIVED AWAKE IN BED. A/O X3 WITH EPISODES OF FORGETFULNESS. ON 4L OF O2 VIA NC AND SATURATING 96%. BREATHING EVEN, REGULAR AND UNLABORED. HOB ELEVATED. TELE- ST 120. IV JOCELYNE MIDLINE, R HAND, LAC ALL CLEAN, PATENT AND FLUSHING WELL. BED ALARM ENABLED. BED IN LOWEST POSITION AND LOCKED IN PLACE. ENCOURAGED PT TO USE CALL LIGHT FOR ASSISTANCE TO THE RESTROOM VIA A WALKER D/T UNSTEADY GAIT. PT VERBALIZED UNDERSTANDING. ORIENTED PT TO ROOM. CALL LIGHT WITHIN REACH AT ALL TIMES. WILL CONTINUE TO MONITOR.
[2017-10-10] MEDS ORDERED: FUROSEMIDE 40 MG/4 ML VIAL ONE (21:06)
[2017-10-10] MEDS: TAMSULOSIN 0.4 MG CAP.SR.24H PO SCH (21:13)
[2017-10-10] MEDS: ATORVASTATIN 10 MG TABLET PO SCH (21:14)
[2017-10-10] MEDS: SENNOSIDES 8.6 MG TABLET PO SCH (21:35)
[2017-10-11] VITALS: BP 114/82
[2017-10-11 04:00] VITALS: BP 109/76
--- NOTE | 2017-10-11 04:08 | NUR ---
WARP PICKER NOTE GAVE REPORT TO MACKENZIE JULIO FOR TRANSFER OF CARE.
--- NOTE | 2017-10-11 04:10 | NUR ---
RN NOTES: RECEIVED REPORT FOR LEIGH ANN FROM SUMANTH SMITH. PATIENT IN BED, ASLEEP AT THIS TIME, ON O2 AT 4 LPM VIA NC, BREATHING EVEN AND UNLABORED. SINGH CATHETER IN PLACE DRAINING DARK YELLOW URINE. BED IN LOWEST AND LOCKED POSITION, SIDERAILS UP X 3, CALL LIGHT WITHIN REACH. WILL CONT TO MONITOR.
--- NOTE | 2017-10-11 06:37 | NUR ---
EMERGENCY MEDICINE PHYSICIAN ASSISTANT CLOSING NOTES: PATIENT IN BED, ASLEEP AT THIS TIME, ON O2 AT 4 LPM VIA NC, BREATHING EVEN AND UNLABORED. MAINTAINED HOB ELEVATED. SINGH CATHETER IN PLACE DRAINING CLEAR YELLOW URINE. PROVIDED FOR COMFORT AND SAFETY. BED IN LOWEST AND LOCKED POSITION, SIDERAILS UP X 3. CALL LIGHT WITHIN REACH. WILL ENDORSE TO AM RN FOR LEIGH ANN.
[2017-10-11 07:05] LABS: ALBUMIN 3.4 g/dL (3.4-5.0); BILIRUBIN,TOTAL 1.1 mg/dL (0.2-1.0); CREATININE 1.6 mg/dL (0.6-1.3); MAGNESIUM 1.9 mg/dL (1.8-2.4); POTASSIUM 4.1 mmol/L (3.5-5.1); TOTAL PROTEIN, SERUM 7.7 g/dL (6.4-8.2)
[2017-10-11 07:08] LABS: BASOPHILS # (AUTO) 0.1 /CMM (0.0-0.2); BASOPHILS % (AUTO) 0.6 % (0.0-2.0); EOSINOPHILS # (AUTO) 0.6 /CMM (0.0-0.7); EOSINOPHILS % (AUTO) 6.1 % (0.0-6.0); HEMATOCRIT 42 % (39-51); HEMOGLOBIN 14.1 g/dL (13.5-17.5); LYMPHOCYTES # (AUTO) 1.5 /CMM (0.8-4.8); MEAN CORPUSCULAR HEMOGLOBIN 30 PG (26.0-33.0); MEAN CORPUSCULAR HGB CONC 33 g/dl (31.0-36.0); MEAN CORPUSCULAR VOLUME 89 fL (80-96); MONOCYTES # (AUTO) 0.7 /CMM (0.1-1.30); MONOCYTES % (AUTO) 6.9 % (2.0-12.0); NEUTROPHILS # (AUTO) 7.1 /CMM (1.8-8.9); NEUTROPHILS % (AUTO) 71.4 % (43.0-81.0); PLATELET COUNT (AUTO) 188 /CMM (150-450); RDW COEFFICIENT OF VARIATION 16.3 (11.5-15.0); RED BLOOD CELL COUNT(AUTO) 4.74 MIL/uL (4.5-6.0); WHITE BLOOD COUNT (AUTO) 9.9 K/uL (4.3-11.0)
[2017-10-11 08:00] VITALS: BP 125/76
[2017-10-11] MEDS: BLOOD SUGAR DIAGNOSTIC 1 EACH STRIP IN SCH ×4 (08:37→22:00)
[2017-10-11] MEDS: INSULIN REGULAR, HUMAN 100 UNIT/ML 3 ML VIAL SQ PRN ×3 (08:41→16:48)
[2017-10-11] MEDS: MULTIVIT, IRON, MIN NO. 8, FA 1 TAB PO SCH (08:42)
[2017-10-11] MEDS: LEVOTHYROXINE SODIUM 100 MCG TABLET PO SCH (08:43)
[2017-10-11] MEDS: ISOSORBIDE MONONITRATE (30MG) 30 MG TAB.SR.24H PO SCH (08:43)
[2017-10-11] MEDS: POTASSIUM CHLORIDE 20 MEQ TAB.PRT.SR PO SCH (08:43)
[2017-10-11] MEDS: FINASTERIDE (5 MG) 5 MG TABLET PO SCH (08:44)
[2017-10-11] MEDS: SERTRALINE HCL 50 MG TABLET PO SCH (08:44)
[2017-10-11] MEDS: LINAGLIPTIN 5 MG TABLET PO SCH (08:44)
[2017-10-11] MEDS: ASPIRIN 81 MG TAB.CHEW PO SCH (08:44)
[2017-10-11] MEDS: CALCIUM CARB 600MG /VIT D 1 EACH TABLET PO SCH ×2 (08:44→16:33)
[2017-10-11] MEDS: PANTOPRAZOLE 40 MG TABLET.DR PO SCH (08:44)
[2017-10-11] MEDS: APIXABAN 2.5 MG TABLET PO SCH ×2 (08:46→16:33)
[2017-10-11] MEDS: CARVEDILOL 6.25 MG TABLET PO SCH ×2 (08:50→16:34)
--- NOTE | 2017-10-11 11:25 | NUR ---
CLASSIFICATION CLERK NOTES RECEIVED REPORT FROM EUSEBIO JULIO, PATIENT NOT IN ANY DISTRESS. STABLE. WILL CONTINUE TO MONITOR.
--- NOTE | 2017-10-11 11:57 | NUR ---
RN CLOSING NOTE PATIENT IS STABLE DURING MY SHIFT, ASLEEP EASILY AWAKENED, PER DR TOUSSAINT TITRATED TO 2 L/MIN VIA NASAL CANULA, TOLERATED WELL, 94%-96%, VITAL SIGNS STABLE, ALL SAFETY MEASURES TAKEN, BED IN THE LOWEST POSITION CALL LIGHT WITHIN REACH, SIDE RAILS UP X 2, BED ALARM ACTIVATED FOR SAFETY
[2017-10-11 12:00] VITALS: BP 113/74
[2017-10-11] MEDS: FUROSEMIDE 100 MG/10 ML VIAL IV SCH ×3 (13:45→23:25)
[2017-10-11] MEDS: DIGOXIN 0.125 MG TABLET PO SCH (13:57)
--- NOTE | 2017-10-11 13:59 | NUR ---
SENIOR CHEMICAL PROCESS ENGINEER NOTES ACCUCHECK. BS 231 MG/DL, ADMINISTERED 4 UNITS HUM R PER SS.
[2017-10-11 16:00] VITALS: BP 114/82
[2017-10-11] MEDS: ACETAMINOPHEN 325 MG TABLET PO PRN (16:37)
--- NOTE | 2017-10-11 16:45 | NUR ---
INDUSTRIAL EQUIPMENT MECHANIC NOTES ACCUCHECK. BS 197 MG/DL, ADMINISTERED 3 UNITS HUM R PER SS
[2017-10-11] MEDS: HYDROMORPHONE INJ 0.5 MG/0.5 ML SYRINGE IV PRN (18:06)
--- NOTE | 2017-10-11 19:30 | NUR ---
RN/MS NOTES: PT RECEIVED AWAKE IN BED. A/O X3 WITH EPISODES OF FORGETFULNESS. ON O2 @ 2LPM VIA NC AND SATURATING 96 - 97 %. BREATHING EVEN, REGULAR AND UNLABORED. HOB ELEVATED. IV JOCELYNE MIDLINE, R HAND, LAC ALL CLEAN, PATENT AND FLUSHING WELL. BED ALARM ENABLED. BED IN LOWEST POSITION AND LOCKED IN PLACE. ENCOURAGED PT. TO USE CALL LIGHT FOR ANY HELP . PT VERBALIZED UNDERSTANDING. ORIENTED PT TO ROOM. CALL LIGHT WITHIN REACH AT ALL TIMES. WILL CONTINUE TO MONITOR.
--- NOTE | 2017-10-11 19:33 | NUR ---
AUTO WHEEL ALIGNMENT SPECIALIST CLOSING NOTES: PATIENT IN BED, RESTING COMFORTABLY, ON O2 AT 2 LPM VIA NC, BREATHING EVEN AND UNLABORED. MAINTAINED HOB ELEVATED. SINGH CATHETER IN PLACE DRAINING CLEAR YELLOW URINE WITH 1100 ML OUTPUT. PROVIDED FOR COMFORT AND SAFETY. BED IN LOWEST AND LOCKED POSITION, SIDERAILS UP X 3. CALL LIGHT WITHIN REACH. ENDORSED TO NEXT SHIFT FOR LEIGH ANN. Addendum: 10/11/17 at 1937 by ELICEO CUEVAS RN ADDENDUM: PM CARE DONE.
[2017-10-11 20:00] VITALS: BP 111/77
[2017-10-11] MEDS: TAMSULOSIN 0.4 MG CAP.SR.24H PO SCH (23:16)
[2017-10-11] MEDS: SENNOSIDES 8.6 MG TABLET PO SCH (23:16)
[2017-10-11] MEDS: ATORVASTATIN 10 MG TABLET PO SCH (23:16)
[2017-10-11] MEDS ORDERED: FUROSEMIDE 100 MG/10 ML VIAL IV ONE (23:30)
[2017-10-11] MEDS ORDERED: IV D5W 1,000 ML IV PRN (23:59)
[2017-10-12 04:00] VITALS: BP_SYST 110; BP_SYST 114; BP_DIAS 73; BP_DIAS 86
--- NOTE | 2017-10-12 07:15 | NUR ---
RN/MS NOTES: REPORT GIVEN TO AM SHIFT NURSE FOR LEIGH ANN.
--- NOTE | 2017-10-12 07:30 | NUR ---
MS SUMANTH AM NOTES: PATIENT IN BED, AAO X3, PERIODS OF FORGETFULNESS, ON 2L O2 NC, NOT IN ANY DISTRESS, DENIES PAIN OR DISCOMFORT, JOCELYNE MIDLINE WITH D5W AT TKO, LEFT AC AND RT FA IV ACCESS, FLUSHES WELL, SITE CLEAR. USES URINALS. MAINTAINED HOB ELEVATED. INTACT SKIN, ON CCHO PUREED DIET BUT NPO FOR NOW FOR SCHEDULED CARDIOVERSION PER DR. TOUSSAINT, CONSENTS SIGNED. SAFETY MEASURES IN PLACE, BED IN LOWEST AND LOCKED POSITION, SIDERAILS UP X 3. CALL LIGHT WITHIN REACH. WILL COTINUE TO MONITOR. Addendum: 10/12/17 at 1508 by ELICEO CUEVAS RN CORRECTION: PATIENT WITH SINGH CATH IN PLACE DRAINING TO YELLOW COLORED URINE. ADEQUATE AMOUNT. PATIENT WITH PERIOD OF CONFUSION, ASKING FOR URINAL EARLIER.
[2017-10-12 07:42] LABS: BASOPHILS # (AUTO) 0.1 /CMM (0.0-0.2); BASOPHILS % (AUTO) 0.5 % (0.0-2.0); EOSINOPHILS # (AUTO) 0.6 /CMM (0.0-0.7); EOSINOPHILS % (AUTO) 5.1 % (0.0-6.0); HEMATOCRIT 44 % (39-51); LYMPHOCYTES # (AUTO) 1.3 /CMM (0.8-4.8); MEAN CORPUSCULAR HEMOGLOBIN 30 PG (26.0-33.0); MEAN CORPUSCULAR HGB CONC 34 g/dl (31.0-36.0); MEAN CORPUSCULAR VOLUME 88 fL (80-96); MONOCYTES # (AUTO) 0.7 /CMM (0.1-1.30); MONOCYTES % (AUTO) 6.3 % (2.0-12.0); NEUTROPHILS # (AUTO) 8.9 /CMM (1.8-8.9); NEUTROPHILS % (AUTO) 77.1 % (43.0-81.0); PLATELET COUNT (AUTO) 211 /CMM (150-450); RDW COEFFICIENT OF VARIATION 15.9 (11.5-15.0); RED BLOOD CELL COUNT(AUTO) 5.01 MIL/uL (4.5-6.0); WHITE BLOOD COUNT (AUTO) 11.5 K/uL (4.3-11.0)
[2017-10-12 07:50] LABS: TROPONIN I < 0.017 ng/mL (0.00-0.056)
[2017-10-12 07:53] LABS: ALANINE AMINOTRANSFERASE 24 U/L (12-78); ALBUMIN 3.6 g/dL (3.4-5.0); ALKALINE PHOSPHATASE 85 U/L (46-116); ASPARTATE AMINOTRANSFERASE 28 U/L (15-37); BILIRUBIN,TOTAL 1.2 mg/dL (0.2-1.0); CALCIUM, SERUM 9.1 mg/dL (8.5-10.1); CARBON DIOXIDE 29 mmol/L (21-32); CHLORIDE 96 mmol/L (98-107); CREATININE 1.8 mg/dL (0.6-1.3); GLUCOSE 194 mg/dL (74-106); MAGNESIUM 1.9 mg/dL (1.8-2.4); PHOSPHORUS 4.4 mg/dL (2.5-4.9); POTASSIUM 3.4 mmol/L (3.5-5.1); SODIUM SERUM 139 mmol/L (136-145); TOTAL PROTEIN, SERUM 8.1 g/dL (6.4-8.2); UREA NITROGEN, BLOOD 27 mg/dL (7-18)
[2017-10-12 08:00] VITALS: BP 114/83
[2017-10-12] MEDS: BLOOD SUGAR DIAGNOSTIC 1 EACH STRIP IN SCH ×4 (08:28→21:44)
[2017-10-12] MEDS: PANTOPRAZOLE 40 MG TABLET.DR PO SCH (08:29)
[2017-10-12] MEDS: LEVOTHYROXINE SODIUM 100 MCG TABLET PO SCH (08:30)
[2017-10-12] MEDS: INSULIN REGULAR, HUMAN 100 UNIT/ML 3 ML VIAL SQ PRN ×4 (08:40→21:45)
--- NOTE | 2017-10-12 09:30 | NUR ---
MS RN NOTES ADMINISTERED DUE MEDS. [id number] - ACCJUDIT,. BS 229 MG/DL, ADMINISTERED 4 UNITS HUM R PER SS.
[2017-10-12] MEDS: MULTIVIT, IRON, MIN NO. 8, FA 1 TAB PO SCH (10:00)
[2017-10-12] MEDS: FINASTERIDE (5 MG) 5 MG TABLET PO SCH (10:00)
[2017-10-12] MEDS: LINAGLIPTIN 5 MG TABLET PO SCH (10:00)
[2017-10-12] MEDS: POTASSIUM CHLORIDE 20 MEQ TAB.PRT.SR PO SCH (10:00)
[2017-10-12] MEDS: CALCIUM CARB 600MG /VIT D 1 EACH TABLET PO SCH ×2 (10:00→17:41)
[2017-10-12] MEDS: ISOSORBIDE MONONITRATE (30MG) 30 MG TAB.SR.24H PO SCH (10:01)
[2017-10-12] MEDS: ASPIRIN 81 MG TAB.CHEW PO SCH (10:01)
[2017-10-12] MEDS: SERTRALINE HCL 50 MG TABLET PO SCH (10:01)
[2017-10-12] MEDS: CARVEDILOL 6.25 MG TABLET PO SCH ×2 (10:02→17:42)
[2017-10-12] MEDS: APIXABAN 2.5 MG TABLET PO SCH ×2 (10:02→17:41)
[2017-10-12] MEDS: POTASSIUM CL. PREMIX PERIPHER. 50 ML IV SCH ×2 (10:44→12:06)
--- NOTE | 2017-10-12 10:44 | NUR ---
MS RN NOTES KCL IV BAG #1 STARTED.
--- NOTE | 2017-10-12 12:10 | NUR ---
MS RN NOTES ACCUCHECK,. BS 208 MG/DL, ADMINISTERED 4 UNITS HUM R PER SS.
--- NOTE | 2017-10-12 13:15 | NUR ---
MS RN NOTES PATIENT BACK FROM ICU. STABLE CONDITION.
--- NOTE | 2017-10-12 13:20 | NUR ---
TELEVISION INSTALLER HELPER NOTE 1225: Patient in ICU room 263, A/Ox4, interviewed by anesthesiologist. Dr. Castillo and anesthesiologist abby. Patient consented for Cardioversion and anesthesia. With JOCELYNE midline intact. Placed on monitor and defib pad. On Aflutter 110's. 1230: Cardioversion successful, on NSR 90's. 1300: Patient back to baseline, A/Ox4. VSS, SBP 100's, O2 sat 99% on 2LPM of O2 via NC, NSR 90's. RR 16. 1315: Placed patient back to MS 103, endorsed to Irma RN, back to her care. Patient stable, no respiratory distress noted. No c/o any discomfort. Addendum: 10/12/17 at 1326 by INES KRUGER RN Datascope and strip attached to chart.
--- NOTE | 2017-10-12 13:25 | NUR ---
MS RN NOTES PATIENT BACK FROM ICU. S/P CARDIOVERSION. VITAL SIGNS TAKEN. STABLE.
[2017-10-12] MEDS: DRONEDARONE HYDROCHLORIDE 400 MG TABLET PO SCH ×2 (14:47→17:41)
[2017-10-12 16:00] VITALS: BP 110/73
--- NOTE | 2017-10-12 17:48 | NUR ---
MS RN NOTES ACCUCHECK,. BS 188 MG/DL, ADMINISTERED 3 UNITS HUM R PER SS.
--- NOTE | 2017-10-12 19:52 | NUR ---
WATCH CRYSTAL EDGE GRINDER CLOSING NOTES: PATIENT IN BED, RESTING COMFORTABLY, ON O2 AT 2 LPM VIA NC, BREATHING EVEN AND UNLABORED. MAINTAINED HOB ELEVATED. SINGH CATHETER IN PLACE DRAINING CLEAR YELLOW URINE WITH 500 ML OUTPUT. PROVIDED FOR COMFORT AND SAFETY. BED IN LOWEST AND LOCKED POSITION, SIDERAILS UP X 3. CALL LIGHT WITHIN REACH. PM CARE DONE. ALL NEEDS MET. NO OTHER SIGNIFICANT CHANGE IN CONDITION. ENDORSED TO NEXT SHIFT FOR LEIGH ANN.
--- NOTE | 2017-10-12 19:53 | NUR ---
RN NOTE RECEIVED PATIENT IN THE BED, AWAKE/ALERT/ORIENTED X 2, DENIES CHEST PAIN/DISCOMFORT, LAC 18 GAUGE AND JOCELYNE MIDLINE, NO S/S OF INFECTION NOTED, S/P CARDIOVERSION, ALL SAFETY MEASURES TAKEN, BED ALARM ACTIVATED AND CHECKED PRIOR, BED IN THE LOWEST POSITION, CALL LIGHT WITHIN REACH, ALL BELONGINGS WITHIN REACH, SIDE RAILS UP X 2, WILL CONTINUE TO MONITOR PATIENT
[2017-10-12 20:00] VITALS: BP 111/78
[2017-10-12] MEDS: ATORVASTATIN 10 MG TABLET PO SCH (21:29)
[2017-10-12] MEDS: ACETAMINOPHEN 325 MG TABLET PO PRN (21:29)
[2017-10-12] MEDS: SENNOSIDES 8.6 MG TABLET PO SCH (21:30)
[2017-10-12] MEDS: TAMSULOSIN 0.4 MG CAP.SR.24H PO SCH (21:30)
[2017-10-13 04:00] VITALS: BP 108/76
--- NOTE | 2017-10-13 06:49 | NUR ---
RN CLOSING NOTE NO ACUTE CHANGES DURING MY SHIFT, NO CHEST PAIN OR DISCOMFORT NOTED, PATIENT IS ALERT/ORIENTED X 2, CONFUSED AT TIMES, 2L/MIN VIA NASAL CANULA, TOLERATED WELL, NO DISTRESS NOTED, SINGH CATHETER IS INTACT, DRAINS URINE, POOR FLUID INTAKE, ENCOURAGED PO INTAKE, PATIENT WOULD TAKE COUPLE SIPS HOWEVER STILL REFUSE, HAD ONLY ONE CUP OF WATER AT NIGHT, LAC 18 GAUGE, R HAND 20 GAUGE, JOCELYNE MIDLINE TKO, NO S/S OF INFECTION/INFILTRATION NOTED, VITAL SIGNS STABLE, ALL SAFETY MEASURES TAKEN, BED ALARM ACTIVATED AND WORKING PROPERLY, CHECKED PRIOR, ALL BELONGINGS WITHIN REACH, BED IN THE LOWEST POSITION, SIDE RAILS UP X 2, WILL ENDORSE TO AM SHIFT FOR LEIGH ANN Addendum: 10/13/17 at 0722 by MERA JAY RN ENDORSED TO AM NURSE CHICHO TO COLLECT URINE, CHARGE NURSE IS AWARE
--- NOTE | 2017-10-13 07:25 | NUR ---
RN OPENING NOTES RECEIVED PATIENT IN BED RESTING. A/OX2, FORGETFUL, CONFUSED. ON 2LPM O2 VIA NC, SPO2 @ 94%. NO ACUTE DISTRESS, NO SOB NOTED. NO S/S OF PAIN OR DISCOMFORT. IV SITE INTACT AND PATENT. SINGH IN PLACE, DRAINING CLEAR YELLOW URINE. KEPT PATIENT SAFE AND COMFORTABLE IN BED. BED IN LOW/LOCKED POSITION, SIDERAILS UPX2, HOB ELEVATED, CALL LIGHT IN REACH. WILL CONTINUE TO MONITOR ACCORDINGLY.
[2017-10-13] MEDS: BLOOD SUGAR DIAGNOSTIC 1 EACH STRIP IN SCH ×2 (07:30→12:37)
[2017-10-13 08:00] VITALS: BP 116/83
[2017-10-13] MEDS: POTASSIUM CHLORIDE 20 MEQ TAB.PRT.SR PO SCH (09:45)
[2017-10-13] MEDS: CALCIUM CARB 600MG /VIT D 1 EACH TABLET PO SCH (09:46)
[2017-10-13] MEDS: FINASTERIDE (5 MG) 5 MG TABLET PO SCH (09:46)
[2017-10-13] MEDS: CARVEDILOL 6.25 MG TABLET PO SCH (09:46)
[2017-10-13] MEDS: ASPIRIN 81 MG TAB.CHEW PO SCH (09:46)
[2017-10-13] MEDS: MULTIVIT, IRON, MIN NO. 8, FA 1 TAB PO SCH (09:46)
[2017-10-13] MEDS: DRONEDARONE HYDROCHLORIDE 400 MG TABLET PO SCH (09:47)
[2017-10-13 09:48] VITALS: BP 118/82
[2017-10-13] MEDS: ISOSORBIDE MONONITRATE (30MG) 30 MG TAB.SR.24H PO SCH (09:48)
[2017-10-13] MEDS: LINAGLIPTIN 5 MG TABLET PO SCH (09:48)
[2017-10-13] MEDS: SERTRALINE HCL 50 MG TABLET PO SCH (09:48)
[2017-10-13] MEDS: APIXABAN 2.5 MG TABLET PO SCH (09:49)
[2017-10-13] MEDS: LEVOTHYROXINE SODIUM 100 MCG TABLET PO SCH (09:52)
[2017-10-13] MEDS: PANTOPRAZOLE 40 MG TABLET.DR PO SCH (09:52)
[2017-10-13] MEDS: INSULIN REGULAR, HUMAN 100 UNIT/ML 3 ML VIAL SQ PRN ×2 (10:05→13:28)
[2017-10-13] MEDS ORDERED: DRON400T2 PO (12:21)
--- NOTE | 2017-10-13 12:30 | NUR ---
RN NOTES D/C SINGH PER DR PAIGE. REMOVED SINGH, PATIENT TOLERATED WELL, NO COMPLICATIONS NOTED. WILL MONITOR ACCORDINGLY.
[2017-10-13] MEDS: DIGOXIN 0.125 MG TABLET PO SCH (13:24)
[2017-10-13 14:12] LABS: APPEARANCE,URINE SL CLOUDY (CLEAR); BILIRUBIN,URINE NEGATIVE (NEGATIVE); BLOOD, URINE 2+ Ery/uL (NEGATIVE); COLOR,URINE YELLOW (YELLOW); KETONES,URINE TRACE (NEGATIVE); LEUKOCYTE ESTERASE ,URINE NEGATIVE (NEGATIVE); NITRITE, URINE NEGATIVE (NEGATIVE); PROTEIN,URINE NEGATIVE (NEGATIVE); UGLUCOSE NEGATIVE (NEGATIVE); UROBILINOGEN,URINE 0.2 EU/dL (0.2)
[2017-10-13 14:54] LABS: BACTERIA,URINE 0 /HPF (None Seen); SQUAMOUS EPITHELIAL CELL,UR 0-2 /HPF (None Seen)
--- NOTE | 2017-10-13 16:30 | NUR ---
EAR FLAP BINDER NOTES DISCHARGE PATIENT IN STABLE CONDITION VIA AMBULANCE. REPORT GIVEN TO SUMANTH BRITO FROM [facility], DISCHARGE INSTRUCTIONS GIVEN, VERBALIZED UNDERSTANDING. DISCHARGE PAPERWORK GIVEN TO MERCHANDISE PLANNING MANAGER. NO BELONGINGS NOTED. D/C IV, APPLIED PRESSURE, NO BLEEDING, NO COMPLICATIONS. REMOVED NAME BAND.
== END 2017-10-13 16:30 | DRG 291 ==
LOC: ER 01:57 → TELE 07:39 → ICU 09:06 → TELE-TD 10-08 21:16 → TELE1 10-09 10:51 → MEDSG1 10-11 11:32
PROVIDERS: ADMIT Internal Medicine; ATTEND Internal Medicine
PROC: 5A09457 Assistance with Respiratory Ventilation, 24-96 Consecutive Hours, Continuous Positive Airway Pressure (ICD-10-PCS; principal; 2017-10-08)
PROC: 05H633Z Insertion of Infusion Device into Left Subclavian Vein, Percutaneous Approach (ICD-10-PCS; 2017-10-09)
PROC: B547ZZA Ultrasonography of Left Subclavian Vein, Guidance (ICD-10-PCS; 2017-10-09)
PROC: 5A2204Z Restoration of Cardiac Rhythm, Single (ICD-10-PCS; 2017-10-12)
DX: I13.0 Hypertensive heart and chronic kidney disease with heart failure and stage 1 through stage 4 chronic kidney disease, or unspecified chronic kidney disease (principal); I50.23 Acute on chronic systolic (congestive) heart failure; N17.0 Acute kidney failure with tubular necrosis; E43 Unspecified severe protein-calorie malnutrition; G92 Toxic encephalopathy; J96.01 Acute respiratory failure with hypoxia; J96.02 Acute respiratory failure with hypercapnia; E11.22 Type 2 diabetes mellitus with diabetic chronic kidney disease; E87.0 Hyperosmolality and hypernatremia; I48.91 Unspecified atrial fibrillation; I48.92 Unspecified atrial flutter; N17.9 Acute kidney failure, unspecified; N12 Tubulo-interstitial nephritis, not specified as acute or chronic; I42.9 Cardiomyopathy, unspecified; I67.2 Cerebral atherosclerosis; I25.2 Old myocardial infarction; J44.9 Chronic obstructive pulmonary disease, unspecified; I25.10 Atherosclerotic heart disease of native coronary artery without angina pectoris; N18.9 Chronic kidney disease, unspecified; E88.09 Other disorders of plasma-protein metabolism, not elsewhere classified; M62.50 Muscle wasting and atrophy, not elsewhere classified, unspecified site; Z88.0 Allergy status to penicillin; R29.6 Repeated falls; Z95.1 Presence of aortocoronary bypass graft; Z79.82 Long term (current) use of aspirin; Z79.899 Other long term (current) drug therapy; N40.0 Benign prostatic hyperplasia without lower urinary tract symptoms; F32.9 Major depressive disorder, single episode, unspecified; F41.9 Anxiety disorder, unspecified; D63.8 Anemia in other chronic diseases classified elsewhere; I11.0 Hypertensive heart disease with heart failure; E03.9 Hypothyroidism, unspecified; Z79.84 Long term (current) use of oral hypoglycemic drugs; Z79.01 Long term (current) use of anticoagulants; S29.9XXS Unspecified injury of thorax, sequela; V89.2XXS Person injured in unspecified motor-vehicle accident, traffic, sequela; T50.1X5A Adverse effect of loop [high-ceiling] diuretics, initial encounter; Y92.129 Unspecified place in nursing home as the place of occurrence of the external cause; E66.01 Morbid (severe) obesity due to excess calories; Z68.27 Body mass index [BMI] 27.0-27.9, adult
CPT/HCPCS: 36415; 36569; 36600; 71045-TC; 78582; 80048-TC; 80053-TC; 80061-TC; 80076-TC; 80162-TC; 81000-TC; 82728-TC; 82803-TC; 82962-TC; 83540-TC; 83605-TC; 83735-TC; 83880; 84100-TC; 84132-TC; 84443-TC; 84484-TC; 85025-TC; 85378-TC; 85730-TC; 87040-TC; 87081-TC; 87400; 92611-TC; 94799-TC; 97116-TC; 97530-TC; A4216; A4606; A9540; A9567; J0456; J0696; J1650; J1815; J1940; J2270; J2405; J3475; J3480; J3490; J7042; J7060; J7070; Z7610

== ENCOUNTER 2019-09-28 19:18 | Inpatient (IN) | payer MEDICARE, MEDICAID ==
[~2019-09-28] VITALS: Ht 172.7 cm; Wt 84.4 kg
[~2019-09-28 19:18] MED LIST changes: +BISA10SU11 RC; -BISA10SU8 RC; +DRON400T2 PO; -LEVO500T90 PO; -SENN-167 PO; +SENN-168 PO
--- NOTE | 2019-09-28 19:20 | NUR ---
[facility] C/O PRESSURE LIKE CHEST PAIN. NITRO X 3, ASP GIVEN AUTO RADIO MECHANIC. MINIMAL RELIEF, pt awake, alert, -sob, nad noted, pt on monitor,vss, pending md heaton
[2019-09-28] MEDS ORDERED: NITROGLYCERIN PACKET 1 GM PACKET TOP ONE (19:30)
[2019-09-28] MEDS ORDERED: NITROGLYCERIN PACKET 1 GM PACKET ONE (19:37)
[2019-09-28 19:40] LABS: BASOPHILS # (AUTO) 0.1 /CMM (0.0-0.2); BASOPHILS % (AUTO) 1.2 % (0.0-2.0); EOSINOPHILS % (AUTO) 3.5 % (0.0-6.0); HEMATOCRIT 38 % (39-51); HEMOGLOBIN 13.2 g/dL (13.5-17.5); LYMPHOCYTES # (AUTO) 1.7 /CMM (0.8-4.8); LYMPHOCYTES % (AUTO) 16.8 % (20.0-44.0); MEAN CORPUSCULAR HGB CONC 34 g/dl (31.0-36.0); MEAN CORPUSCULAR VOLUME 89 fL (80-96); MONOCYTES % (AUTO) 10.4 % (2.0-12.0); NEUTROPHILS # (AUTO) 6.8 /CMM (1.8-8.9); NEUTROPHILS % (AUTO) 68.1 % (43.0-81.0); PLATELET COUNT (AUTO) 201 /CMM (150-450); RED BLOOD CELL COUNT(AUTO) 4.32 MIL/uL (4.5-6.0)
[2019-09-28 20:00] LABS: DIGOXIN 0.98 ng/mL (0.90-2.00)
[2019-09-28 20:01] LABS: ALANINE AMINOTRANSFERASE 18 U/L (12-78); ALBUMIN 3.1 g/dL (3.4-5.0); ALKALINE PHOSPHATASE 94 U/L (46-116); ASPARTATE AMINOTRANSFERASE 15 U/L (15-37); B-TYPE NATRIURETIC PEPTIDE 1200 PG/ML (0-125); BILIRUBIN,DIRECT 0.1 mg/dL (0.0-0.2); BILIRUBIN,TOTAL 0.4 mg/dL (0.2-1.0); CALCIUM, SERUM 8.5 mg/dL (8.5-10.1); CARBON DIOXIDE 24 mmol/L (21-32); CHLORIDE 101 mmol/L (98-107); CREATININE 1.8 mg/dL (0.6-1.3); POTASSIUM 4.4 mmol/L (3.5-5.1); SODIUM SERUM 135 mmol/L (136-145); TOTAL PROTEIN, SERUM 6.9 g/dL (6.4-8.2); UREA NITROGEN, BLOOD 42 mg/dL (7-18)
[2019-09-28 20:06] LABS: GLUCOSE 378 mg/dL (74-106)
--- NOTE | 2019-09-28 20:30 | NUR ---
EPIC PROOF MACHINE OPERATOR PAGED FOR PANEL
--- NOTE | 2019-09-28 20:40 | NUR ---
DR. NUGENT ON THE PHONE WITH DR. WALDROP
--- NOTE | 2019-09-28 20:51 | NUR ---
CALLED FOR TELE BED
[2019-09-28 20:56] LABS: APPEARANCE,URINE Clear (CLEAR); BILIRUBIN,URINE Negative (NEGATIVE); BLOOD, URINE Negative Ery/uL (NEGATIVE); COLOR,URINE Yellow (YELLOW); KETONES,URINE Trace (NEGATIVE); LEUKOCYTE ESTERASE ,URINE Negative (NEGATIVE); NITRITE, URINE Negative (NEGATIVE); PH,URINE 5.5 (5.0-8.0); PROTEIN,URINE Negative (NEGATIVE); UGLUCOSE 100 MG/DL mg/dL (NEGATIVE); UROBILINOGEN,URINE 0.2 EU/dL (0.2)
--- NOTE | 2019-09-28 21:02 | NUR ---
CALLED [employer] FOR READ
[2019-09-28] MEDS ORDERED: INSULIN REGULAR, HUMAN 100 UNIT/ML 10 ML VIAL ONE (21:05)
[2019-09-28 21:12] LABS: BACTERIA,URINE Rare /HPF (None Seen); MUCUS,URINE Many /LPF (None Seen)
[2019-09-28] MEDS ORDERED: HYDR-4384 PO (21:12)
[2019-09-28] MEDS ORDERED: CLOP75TA15 PO (21:12)
[2019-09-28] MEDS ORDERED: SERT25TA PO (21:12)
[2019-09-28] MEDS ORDERED: GEMF600T5 PO (21:12)
[2019-09-28] MEDS ORDERED: CARV6.252 PO (21:12)
[2019-09-28] MEDS ORDERED: ICOS1CAP PO (21:12)
[2019-09-28] MEDS ORDERED: LEVO150T8 PO (21:12)
[2019-09-28] MEDS ORDERED: LOSA50TA39 PO (21:12)
--- NOTE | 2019-09-28 21:23 | NUR ---
report given to carol woodard for jace pt will be transported to 3rd floor
[2019-09-28] MEDS: INSULIN LISPRO/ASPART 100 UNIT/ML CARTRIDGE SQ SCH (21:27)
[2019-09-28 22:00] VITALS: BP 142/72
[2019-09-28] MEDS ORDERED: BISACODYL SUPP (10 MG) 10 MG/SUPP.RECT SUPP.RECT RC PRN (22:00)
[2019-09-28] MEDS ORDERED: HYDROCODONE/APAP 5/325MG 1 EACH TABLET PO PRN ×2 (22:00→22:30)
[2019-09-28] MEDS ORDERED: NITROGLYCERIN 0.4 MG/TAB BOTTLE SL PRN (22:00)
[2019-09-28] MEDS ORDERED: MAGNESIUM HYDROXIDE 30 ML UDC PO PRN (22:00)
--- NOTE | 2019-09-28 22:00 | NUR ---
JUNIOR HIGH MATH TEACHERLAWN CARE WORKER NOTES RECEIVED PATIENT VIA GURNEY FROM ER ACCOMPANIED BY ER STAFFS. ALERT AND ORIENTED X 3, VERBALLY RESPONSIVE AND ABLE TO FOLLOW DIRECTIONS. BREATHING REGULAR AND UNLABORED ON OXYGEN AT 3L/MIN VIA NASAL CANNULA. RIGHT HAND G18 IV LINE INTACT AND PATENT, FLUSHING WELL WITH NO BLEEDING NOTED. VITAL SIGNS, HEIGHT AND WEIGHT TAKEN. BODY ASSESSMENT DONE, OBSERVED WITH SACRAL REDNESS AND BLE DRY SCABS. PHOTO TAKEN KEPT IN THE CHART. ATTACHED TO MONITOR CAR OPERATOR WITH INITIAL READING OF NSR with BBB AT 68bpm. PATIENT HAS A POLST AND WISHES TO BE FULL CODE. BELONGINGS CHECKED BY DATA VISUALIZATION DEVELOPER. COMPLAINED OF 3/10 CHEST PAIN, PER THE PATIENT ITS TOLERABLE PAIN. NON-PHARMACOLOGICAL INTERVENTIONS PROVIDED. BED LOW AND LOCKED ON SEMI FOWLERS POSITION. CALL LIGHT IN REACH. WILL CONTINUE TO MONITOR.
[2019-09-28 22:08] VITALS: BP 142/72
[2019-09-28] MEDS ORDERED: ZOLPIDEM TARTRATE 5 MG TABLET PO PRN (22:30)
[2019-09-28] MEDS ORDERED: ACETAMINOPHEN 325 MG TABLET PO PRN (22:30)
[2019-09-28] MEDS ORDERED: ONDANSETRON HCL/PF 4 MG/2 ML VIAL IVP PRN (22:30)
[2019-09-28] MEDS ORDERED: DEXTROSE 50%-WATER 50 ML DISP.SYRIN IV PRN (22:30)
[2019-09-28] MEDS ORDERED: ALBUTEROL FS 2.5 MG/3 ML VIAL.NEB NEB PRN (22:30)
[2019-09-28] MEDS: TAMSULOSIN 0.4 MG CAP.SR.24H PO SCH (23:09)
[2019-09-29] VITALS: BP 116/66
[2019-09-29 04:00] VITALS: BP 108/40
[2019-09-29] MEDS: BLOOD SUGAR DIAGNOSTIC 1 EACH STRIP IN SCH ×4 (06:42→22:16)
[2019-09-29] MEDS: INSULIN REGULAR, HUMAN 100 UNIT/ML 3 ML VIAL SQ PRN ×3 (06:43→22:24)
[2019-09-29] MEDS: INSULIN LISPRO/ASPART 100 UNIT/ML CARTRIDGE SQ SCH ×3 (06:44→18:21)
--- NOTE | 2019-09-29 06:50 | NUR ---
TIRE BALANCER NOTES BS 227mg/dl, 8UNITS HUMALOG AND 4UNITS REGULAR INSULIN GIVEN SQ, SITE ROTATED. SNACKS PROVIDED ON BEDSIDE. WILL CONTINUE TO MONITOR.
--- NOTE | 2019-09-29 06:53 | NUR ---
DB2 DBA CLOSING NOTES PATIENT IN BED ALERT AND ORIENTED X 3. VERBALLY RESPONSIVE AND ABLE TO FOLLOW DIRECTIONS. BREATHING REGULAR AND UNLABORED ON OXYGEN AT 3L/MIN VIA NASAL CANNULA. RIGHT HAND G18 IV LINE PATENT AND FLUSHING WELL. MAINTAINED ON CARDIAC MONITORING WITH LATEST READING OF NSR with BBB AT 60bpm. NO COMPLAINTS OF CHEST PAIN/DISCOMFORT REPORTED OF THE TIME. BED LOW AND LOCKED ON SEMI FOWLERS POSITION. CALL LIGHT IN REACH. WILL ENDORSE TO MORNING SHIFT FOR LEIGH ANN.
--- NOTE | 2019-09-29 07:13 | NUR ---
MS RN OPENING NOTES RECEIVED PATIENT IN BED ASLEEP, AROUSABLE TO VERBAL AND TACTILE STIMULI. PATIENT DENIES ANY C/O CHEST PAIN. HOB ELEVATED. NO SOB. DENIES ANY C/O PAIN NOR DISCOMFORT AT THIS TIME. RIGHT HAND # 18 SL INTACT AND PATENT. BED IN LOWEST POSITION, LOCKED. BED ALARM ON. CALL LIGHT WITHIN REACH.
--- NOTE | 2019-09-29 07:13 | NUR ---
PROSTHODONTIST/EDUCATOR NOTES ON TELEMONITORING WITH NSR: 64 WITH PVC WITH BBB.
[2019-09-29] MEDS ORDERED: LEVOTHYROXINE SODIUM 150 MCG TABLET PO SCH (07:30)
[2019-09-29 08:00] VITALS: BP 136/56
[2019-09-29] MEDS: LEVOTHYROXINE SODIUM 75 MCG TABLET PO SCH (08:17)
[2019-09-29] MEDS: PANTOPRAZOLE 40 MG TABLET.DR PO SCH (08:17)
[2019-09-29 08:19] LABS: BASOPHILS # (AUTO) 0.1 /CMM (0.0-0.2); BASOPHILS % (AUTO) 1.4 % (0.0-2.0); EOSINOPHILS % (AUTO) 4.7 % (0.0-6.0); HEMATOCRIT 43 % (39-51); HEMOGLOBIN 14.2 g/dL (13.5-17.5); LYMPHOCYTES # (AUTO) 1.6 /CMM (0.8-4.8); LYMPHOCYTES % (AUTO) 20.2 % (20.0-44.0); MEAN CORPUSCULAR HGB CONC 34 g/dl (31.0-36.0); MEAN CORPUSCULAR VOLUME 90 fL (80-96); MONOCYTES # (AUTO) 0.8 /CMM (0.1-1.30); MONOCYTES % (AUTO) 9.7 % (2.0-12.0); NEUTROPHILS # (AUTO) 5.2 /CMM (1.8-8.9); PLATELET COUNT (AUTO) 178 /CMM (150-450); RED BLOOD CELL COUNT(AUTO) 4.73 MIL/uL (4.5-6.0); WHITE BLOOD COUNT (AUTO) 8.1 K/uL (4.3-11.0)
[2019-09-29 08:28] LABS: DIGOXIN 0.79 ng/mL (0.90-2.00)
[2019-09-29 08:30] LABS: ALANINE AMINOTRANSFERASE 20 U/L (12-78); ALBUMIN 3.1 g/dL (3.4-5.0); ALKALINE PHOSPHATASE 83 U/L (46-116); ASPARTATE AMINOTRANSFERASE 9 U/L (15-37); BILIRUBIN,TOTAL 0.4 mg/dL (0.2-1.0); CALCIUM, SERUM 8.5 mg/dL (8.5-10.1); CARBON DIOXIDE 27 mmol/L (21-32); CHLORIDE 105 mmol/L (98-107); CREATININE 1.6 mg/dL (0.6-1.3); GLUCOSE 239 mg/dL (74-106); MAGNESIUM 2.1 mg/dL (1.8-2.4); PHOSPHORUS 3.7 mg/dL (2.5-4.9); POTASSIUM 4.3 mmol/L (3.5-5.1); SODIUM SERUM 139 mmol/L (136-145); TOTAL PROTEIN, SERUM 7.1 g/dL (6.4-8.2); UREA NITROGEN, BLOOD 38 mg/dL (7-18)
[2019-09-29 08:52] LABS: CHOLESTEROL 134 mg/dL (<200); HDL CHOLESTEROL 32 mg/dL (40-60); LDL 79 mg/dL (0-99); THYROID STIMULATING HORMONE 5.878 uIU/mL (0.358-3.74); TRIGLYCERIDES 139 mg/dL (30-150)
[2019-09-29] MEDS: FINASTERIDE (5 MG) 5 MG TABLET PO SCH (08:52)
[2019-09-29] MEDS: CALCIUM CARB 600MG /VIT D 1 EACH TABLET PO SCH ×2 (08:53→16:57)
[2019-09-29] MEDS: GEMFIBROZIL 600 MG TABLET PO SCH ×2 (08:53→16:56)
[2019-09-29] MEDS: CARVEDILOL 6.25 MG TABLET PO SCH ×2 (08:53→17:31)
[2019-09-29] MEDS: CLOPIDOGREL BISULFATE 75 MG TABLET PO SCH (08:53)
[2019-09-29] MEDS: SENNOSIDES 8.6 MG TABLET PO SCH (08:53)
[2019-09-29] MEDS: LINAGLIPTIN 5 MG TABLET PO SCH (08:54)
[2019-09-29] MEDS: SERTRALINE HCL 25 MG TABLET PO SCH (08:54)
[2019-09-29] MEDS: LOSARTAN POTASSIUM 50 MG TABLET PO SCH (08:54)
[2019-09-29] MEDS: MULTIPLE VIT (LYCOPENE/FA/MV,CA,IRON,MIN/LUT)1 TAB PO SCH (08:54)
[2019-09-29] MEDS ORDERED: DIGOXIN 0.125 MG TABLET PO SCH (09:00)
[2019-09-29] MEDS: FUROSEMIDE 40 MG/4 ML VIAL IV SCH ×3 (10:31→18:20)
[2019-09-29] MEDS: ENOXAPARIN SODIUM 40 MG/0.4 ML DISP.SYRIN SQ SCH (10:32)
--- NOTE | 2019-09-29 10:35 | NUR ---
WOUND CARE CONSULT: PT PRESENTS INDEPENDENT WITH BED MOBILITY AND CONTINENT WITH RASH/REDNESS TO PERINEAL AREAS AND INNER BUTTOCKS, PRESENT ON ADMISSION. RECOMMENDATIONS MADE FOR SKIN CARE AND PROTECTION. DISCUSSED WITH NURSING STAFF. WILL SEE PRN. CASILLAS IN AGREEMENT WITH PLAN OF CARE. Addendum: 09/29/19 at 1036 by NEETA RESENDEZ WNDNU Amended: Links added.
[2019-09-29] MEDS: DIGOXIN 0.125 MG TABLET PO SCH (13:55)
[2019-09-29 16:00] VITALS: BP 121/76
[2019-09-29] MEDS: CLOTRIMAZOLE 1% 15 GM TUBE TP SCH (16:56)
[2019-09-29 19:30] VITALS: BP 129/67
--- NOTE | 2019-09-29 19:34 | NUR ---
MS RN CLOSING NOTES PATIENT RESTING COMFORTABLY WATHCING TV. DENIES ANY C/O CHEST PAIN DURING THE SHIFT. HOB ELEVATED. NO S/S OF RESPIRATORY DISTRESS. DENIES ANY OTHER C/O PAIN NOR DISCOMFORT AT THIS TIME. RIGHT HAND # 22 SL INTACT AND PATENT. GOOD PERICARE RENDERED WITH LOTRIMIN CREAM APPLIED. BED IN LOWEST POSITION, LOCKED. BED ALARM ON. CALL LIGHT WITHIN REACH. IN NO APPARENT DISTRESS.
--- NOTE | 2019-09-29 19:48 | NUR ---
MS RN NOTES PATIENT IN BED, AWAKE, ALERT AND ORIENTED X 2-3/ BREATHING EVEN AND UNLABORED ON ROOM AIR. SHOWS NO SIGNS OF ACUTE RESPIRATORY DISTRESS, NO ACUTE PAIN. IV ON R HAND 22G. CLEAN DRY AND INTACT, SHOWS NO SIGNS OF INFILTRATION, NO REDNESS. SAFETY PRECAUTIONS IN PLACE. BED IN LOWEST POSITION, LOCKED, AND CALL LIGHT KEPT WITHIN REACH. WILL CONTINUE TO MONITOR.
[2019-09-29 20:23] VITALS: BP 129/67
[2019-09-29] MEDS: ATORVASTATIN 10 MG TABLET PO SCH (22:11)
[2019-09-29] MEDS: TAMSULOSIN 0.4 MG CAP.SR.24H PO SCH (22:11)
[2019-09-30] MEDS: BLOOD SUGAR DIAGNOSTIC 1 EACH STRIP IN SCH ×5 (06:59→21:43)
[2019-09-30] MEDS: INSULIN REGULAR, HUMAN 100 UNIT/ML 3 ML VIAL SQ PRN ×4 (07:00→21:38)
[2019-09-30] MEDS: INSULIN LISPRO/ASPART 100 UNIT/ML CARTRIDGE SQ SCH ×3 (07:11→17:26)
--- NOTE | 2019-09-30 07:22 | NUR ---
MS RN NOTES PATIENT IN BED, AWAKE, ALERT AND ORIENTED X 2-3/ BREATHING EVEN AND UNLABORED ON ROOM AIR. SHOWS NO SIGNS OF ACUTE RESPIRATORY DISTRESS, NO ACUTE PAIN. IV ON R HAND 22G. CLEAN DRY AND INTACT, SHOWS NO SIGNS OF INFILTRATION, NO REDNESS. ALL DUE MEDICATIONS GIVEN/ SAFETY PRECAUTIONS IN PLACE. BED IN LOWEST POSITION, LOCKED, AND CALL LIGHT KEPT WITHIN REACH. WILL ENDORSE TO ONCOMING NURSE.
[2019-09-30 07:32] LABS: BASOPHILS # (AUTO) 0.1 /CMM (0.0-0.2); BASOPHILS % (AUTO) 1.1 % (0.0-2.0); EOSINOPHILS % (AUTO) 3.6 % (0.0-6.0); HEMATOCRIT 45 % (39-51); LYMPHOCYTES # (AUTO) 1.4 /CMM (0.8-4.8); LYMPHOCYTES % (AUTO) 14.7 % (20.0-44.0); MEAN CORPUSCULAR HGB CONC 34 g/dl (31.0-36.0); MEAN CORPUSCULAR VOLUME 88 fL (80-96); MONOCYTES % (AUTO) 9.8 % (2.0-12.0); NEUTROPHILS % (AUTO) 70.8 % (43.0-81.0); PLATELET COUNT (AUTO) 203 /CMM (150-450); RED BLOOD CELL COUNT(AUTO) 5.05 MIL/uL (4.5-6.0); WHITE BLOOD COUNT (AUTO) 9.8 K/uL (4.3-11.0)
[2019-09-30 07:49] LABS: ALBUMIN 3.4 g/dL (3.4-5.0); BILIRUBIN,TOTAL 0.6 mg/dL (0.2-1.0); CALCIUM, SERUM 9.1 mg/dL (8.5-10.1); CREATININE 1.9 mg/dL (0.6-1.3); MAGNESIUM 1.9 mg/dL (1.8-2.4); PHOSPHORUS 4.7 mg/dL (2.5-4.9); POTASSIUM 4.1 mmol/L (3.5-5.1); TOTAL PROTEIN, SERUM 7.6 g/dL (6.4-8.2)
[2019-09-30 08:00] VITALS: BP 102/71
--- NOTE | 2019-09-30 08:00 | NUR ---
MS RN OPENING NOTES RECEIVED PATIENT IN BED, AWAKE, ALERT AND ORIENTED X 2-3. NO CARDIAC OR RESPIRATORY DISTRESS NOTED. BREATHING EVEN AND UNLABORED. PT ON O2 AT 2L/,IN. SATURATING AT 95%, WITHOUT O2 PT DESATS TO 88%. . SHOWS NO SIGNS OF ACUTE RESPIRATORY DISTRESS, NO C/O PAIN OR DISCOMFORT. . IV NOTED ON R HAND 22G. CLEAN DRY AND INTACT, SHOWS NO SIGNS OF INFILTRATION, NO REDNESS, NO S/S OF INFECTION NOTED. SAFETY PRECAUTIONS IN PLACE. BED IN LOWEST POSITION, LOCKED, AND CALL LIGHT KEPT WITHIN REACH. WILL CONTINUE TO MONITOR.
[2019-09-30] MEDS: MULTIPLE VIT (LYCOPENE/FA/MV,CA,IRON,MIN/LUT)1 TAB PO SCH (08:19)
[2019-09-30] MEDS: SENNOSIDES 8.6 MG TABLET PO SCH (08:19)
[2019-09-30] MEDS: PANTOPRAZOLE 40 MG TABLET.DR PO SCH (08:20)
[2019-09-30] MEDS: FINASTERIDE (5 MG) 5 MG TABLET PO SCH (08:20)
[2019-09-30] MEDS: LEVOTHYROXINE SODIUM 75 MCG TABLET PO SCH (08:20)
[2019-09-30] MEDS: SERTRALINE HCL 25 MG TABLET PO SCH (08:20)
[2019-09-30] MEDS: LINAGLIPTIN 5 MG TABLET PO SCH (08:20)
[2019-09-30] MEDS: GEMFIBROZIL 600 MG TABLET PO SCH ×2 (08:20→17:22)
[2019-09-30] MEDS: CALCIUM CARB 600MG /VIT D 1 EACH TABLET PO SCH ×2 (08:26→17:22)
[2019-09-30] MEDS: CARVEDILOL 6.25 MG TABLET PO SCH ×2 (08:50→17:23)
[2019-09-30] MEDS: LOSARTAN POTASSIUM 50 MG TABLET PO SCH (08:51)
[2019-09-30] MEDS: CLOPIDOGREL BISULFATE 75 MG TABLET PO SCH (08:52)
[2019-09-30] MEDS: ENOXAPARIN SODIUM 40 MG/0.4 ML DISP.SYRIN SQ SCH (08:53)
[2019-09-30] MEDS: FUROSEMIDE 40 MG TABLET PO SCH (09:00)
[2019-09-30] MEDS: CLOTRIMAZOLE 1% 15 GM TUBE TP SCH ×2 (09:04→17:23)
[2019-09-30] MEDS: DIGOXIN 0.125 MG TABLET PO SCH (12:19)
[2019-09-30 16:00] VITALS: BP 119/70
--- NOTE | 2019-09-30 16:30 | NUR ---
IV FLUIDS NOTIFIED DR PINO RE ELEVATED BUN AND CR, WELL REGARDING PT HAVING POOR PO INTAKE. PER MD START D5NS 75ML/HR X 2 L ONLY.
[2019-09-30] MEDS: IV D5/ 0.9% NACL 1,000 ML IV SCH (16:42)
--- NOTE | 2019-09-30 18:00 | NUR ---
SEEN BY SHANNON PAIGE DNP PT WAS SEEN BY SHANNON PAIGE DNP.
--- NOTE | 2019-09-30 18:41 | NUR ---
MS RN CLOSING NOTES PATIENT IN BED, AWAKE, ALERT AND ORIENTED X 2-3. NO CARDIAC OR RESPIRATORY DISTRESS NOTED. BREATHING EVEN AND UNLABORED. PT ON O2 AT 2L/,IN. SATURATING AT 95%, WITHOUT O2 PT DESATS TO 88%. . SHOWS NO SIGNS OF ACUTE RESPIRATORY DISTRESS, NO C/O PAIN OR DISCOMFORT. . IV NOTED ON R HAND 22G. D5NS RUNNING AT 75ML/HR. PT WITH ORDERS FOR D5NS 75ML/HR X 2L, #1 CURRENTLY HANGING. IV SITE CLEAN DRY AND INTACT, SHOWS NO SIGNS OF INFILTRATION, NO REDNESS, NO S/S OF INFECTION NOTED. SAFETY PRECAUTIONS IN PLACE. BED IN LOWEST POSITION, LOCKED, AND CALL LIGHT KEPT WITHIN REACH. WILL CONTINUE TO MONITOR. OFFERED FLUIDS. URINE COLLECTED. AND CALLED IN TO LAB FOR HEAD OF MARKETING.
[2019-09-30 19:27] LABS: CREATININE, URINE 156.1 MG/DL (30.0-125.0); URINE TOTAL PROTEIN 30.5 mg/dL (0-11.9)
[2019-09-30 19:30] VITALS: BP 129/72
--- NOTE | 2019-09-30 19:30 | NUR ---
MS RN NOTES PATIENT IN BED, AWAKE, ALERT AND ORIENTED X 2-3. REMIND PATIENT TO NOT GET OUT OF BED WITHOUT ASSISTANCE. BREATHING EVEN AND UNLABORED ON ROOM AIR. SHOWS NO SIGNS OF ACUTE RESPIRATORY DISTRESS, NO ACUTE PAIN. IV ON R HAND 22G. CLEAN DRY AND INTACT, SHOWS NO SIGNS OF INFILTRATION, NO REDNESS. SAFETY PRECAUTIONS IN PLACE. BED IN LOWEST POSITION, LOCKED, AND CALL LIGHT KEPT WITHIN REACH. WILL CONTINUE TO MONITOR.
[2019-09-30 20:14] LABS: APPEARANCE,URINE CLEAR (CLEAR); BILIRUBIN,URINE NEGATIVE (NEGATIVE); BLOOD, URINE NEGATIVE Ery/uL (NEGATIVE); COLOR,URINE YELLOW (YELLOW); KETONES,URINE NEGATIVE (NEGATIVE); LEUKOCYTE ESTERASE ,URINE NEGATIVE (NEGATIVE); NITRITE, URINE NEGATIVE (NEGATIVE); PH,URINE 5.5 (5.0-8.0); PROTEIN,URINE NEGATIVE (NEGATIVE); UGLUCOSE NEGATIVE (NEGATIVE); UROBILINOGEN,URINE 0.2 EU/dL (0.2)
[2019-09-30 20:45] VITALS: BP 129/72
[2019-09-30 21:20] LABS: EOSINOPHIL,URINE None Seen
[2019-09-30] MEDS: TAMSULOSIN 0.4 MG CAP.SR.24H PO SCH (21:31)
[2019-09-30] MEDS: ATORVASTATIN 10 MG TABLET PO SCH (21:31)
[2019-10-01] MEDS: IV D5/ 0.9% NACL 1,000 ML IV SCH (05:32)
[2019-10-01 06:11] LABS: PTH, INTACT 42 pg/mL (15-65)
[2019-10-01] MEDS: BLOOD SUGAR DIAGNOSTIC 1 EACH STRIP IN SCH ×3 (06:32→16:36)
[2019-10-01] MEDS: INSULIN REGULAR, HUMAN 100 UNIT/ML 3 ML VIAL SQ PRN ×2 (06:34→11:57)
[2019-10-01] MEDS: INSULIN LISPRO/ASPART 100 UNIT/ML CARTRIDGE SQ SCH ×3 (06:35→17:30)
--- NOTE | 2019-10-01 06:47 | NUR ---
MS RN NOTES PATIENT IN BED, ASLEEP, ALERT AND ORIENTED X 2-3. BREATHING EVEN AND UNLABORED ON ROOM AIR. SHOWS NO SIGNS OF ACUTE RESPIRATORY DISTRESS, NO ACUTE PAIN. IV ON L WRIST 22G RUNNING D5NS AT 75ML/HR. CLEAN DRY AND INTACT, SHOWS NO SIGNS OF INFILTRATION, NO REDNESS. ALL DUE MEDICATIONS GIVEN. SAFETY PRECAUTIONS IN PLACE. BED IN LOWEST POSITION, LOCKED, AND CALL LIGHT KEPT WITHIN REACH. WILL ENDORSE TO ONCOMING
--- NOTE | 2019-10-01 08:00 | NUR ---
MS RN OPENING NOTES RECEIVED PATIENT IN BED, AWAKE, ALERT AND ORIENTED X 2-3. NO CARDIAC OR RESPIRATORY DISTRESS NOTED. BREATHING EVEN AND UNLABORED. PT TOLERATING ROOM AIR. SATURATING AT 95%, SHOWS NO SIGNS OF ACUTE RESPIRATORY DISTRESS, NO C/O PAIN OR DISCOMFORT. NO SOB NOTED . IV NOTED ON L HAND 22G. CLEAN DRY AND INTACT, SHOWS NO SIGNS OF INFILTRATION, NO REDNESS, NO S/S OF INFECTION NOTED. SAFETY PRECAUTIONS IN PLACE. BED IN LOWEST POSITION, LOCKED, AND CALL LIGHT KEPT WITHIN REACH. INTRUCTED PT NOT TO GET UP WITHOUT ANY ASSISTANCE. PT AGREED AND UNDERSTOOD. WILL CONTINUE TO MONITOR.
[2019-10-01] MEDS: MULTIPLE VIT (LYCOPENE/FA/MV,CA,IRON,MIN/LUT)1 TAB PO SCH (08:15)
[2019-10-01] MEDS: CLOPIDOGREL BISULFATE 75 MG TABLET PO SCH (08:15)
[2019-10-01] MEDS: PANTOPRAZOLE 40 MG TABLET.DR PO SCH (08:15)
[2019-10-01] MEDS: SENNOSIDES 8.6 MG TABLET PO SCH (08:15)
[2019-10-01] MEDS: LEVOTHYROXINE SODIUM 75 MCG TABLET PO SCH (08:15)
[2019-10-01] MEDS: LINAGLIPTIN 5 MG TABLET PO SCH (08:16)
[2019-10-01] MEDS: FINASTERIDE (5 MG) 5 MG TABLET PO SCH (08:16)
[2019-10-01] MEDS: CARVEDILOL 6.25 MG TABLET PO SCH ×2 (08:16→16:29)
[2019-10-01] MEDS: FUROSEMIDE 40 MG TABLET PO SCH (08:16)
[2019-10-01] MEDS: GEMFIBROZIL 600 MG TABLET PO SCH ×2 (08:17→16:30)
[2019-10-01] MEDS: CALCIUM CARB 600MG /VIT D 1 EACH TABLET PO SCH ×2 (08:17→16:29)
[2019-10-01] MEDS: SERTRALINE HCL 25 MG TABLET PO SCH (08:17)
[2019-10-01] MEDS: LOSARTAN POTASSIUM 50 MG TABLET PO SCH (08:17)
[2019-10-01] MEDS: ENOXAPARIN SODIUM 40 MG/0.4 ML DISP.SYRIN SQ SCH (08:20)
[2019-10-01] MEDS: CLOTRIMAZOLE 1% 15 GM TUBE TP SCH ×2 (08:28→16:29)
[2019-10-01 09:32] LABS: BASOPHILS # (AUTO) 0.1 /CMM (0.0-0.2); BASOPHILS % (AUTO) 1.3 % (0.0-2.0); EOSINOPHILS % (AUTO) 2.9 % (0.0-6.0); HEMATOCRIT 46 % (39-51); HEMOGLOBIN 15.2 g/dL (13.5-17.5); LYMPHOCYTES # (AUTO) 1.1 /CMM (0.8-4.8); LYMPHOCYTES % (AUTO) 12.8 % (20.0-44.0); MEAN CORPUSCULAR HGB CONC 33 g/dl (31.0-36.0); MEAN CORPUSCULAR VOLUME 90 fL (80-96); MONOCYTES # (AUTO) 0.7 /CMM (0.1-1.30); MONOCYTES % (AUTO) 8.4 % (2.0-12.0); NEUTROPHILS # (AUTO) 6.2 /CMM (1.8-8.9); NEUTROPHILS % (AUTO) 74.6 % (43.0-81.0); PLATELET COUNT (AUTO) 208 /CMM (150-450); RED BLOOD CELL COUNT(AUTO) 5.09 MIL/uL (4.5-6.0); WHITE BLOOD COUNT (AUTO) 8.3 K/uL (4.3-11.0)
[2019-10-01 09:55] LABS: ALBUMIN 3.4 g/dL (3.4-5.0); BILIRUBIN,TOTAL 0.6 mg/dL (0.2-1.0); CALCIUM, SERUM 8.6 mg/dL (8.5-10.1); MAGNESIUM 2.1 mg/dL (1.8-2.4); PHOSPHORUS 3.2 mg/dL (2.5-4.9); POTASSIUM 3.8 mmol/L (3.5-5.1); TOTAL PROTEIN, SERUM 7.5 g/dL (6.4-8.2)
[2019-10-01] MEDS: DIGOXIN 0.125 MG TABLET PO SCH (12:28)
[2019-10-01] MEDS ORDERED: INSU100V7 SQ (12:36)
[2019-10-01] MEDS ORDERED: INSU100C SQ (12:36)
[2019-10-01] MEDS ORDERED: CLOT15CR35 TP (12:36)
[2019-10-01] MEDS ORDERED: FURO40TA5 PO (12:36)
[2019-10-01 15:19] LABS: *SPE A/G RATIO 0.9 (0.7-1.7); *SPE ALBUMIN 3.1 g/dL (2.9-4.4); *SPE ALPHA-1-GLOBULIN 0.2 g/dL (0.0-0.4); *SPE ALPHA-2-GLOBULIN 1.1 g/dL (0.4-1.0); *SPE BETA GLOBULIN 1.3 g/dL (0.7-1.3); *SPE GLOBULIN, TOTAL 3.5 g/dL (2.2-3.9); *SPE M-SPIKE Not Observed g/dL (Not Observed); *SPEGAMMA GLOBULIN 0.9 g/dL (0.4-1.8)
[2019-10-01 16:29] VITALS: BP 128/68
--- NOTE | 2019-10-01 17:33 | NUR ---
D/C TP SNF PT PICKED UP BY CARPET YARN WINDER OPERATOR. PT LEFT TO GO TO [facility]. IN STABLE CONDITION. PT AWAKE ALERT AND ORIENTED X 2-3. D/C TEACHINGS POROVIDED TO RESIDENT. D/C INSTRUCTOINS ALSO PROVIDED TO SNF RN FELICE. REPORT GIVEN. IV ACCESS DISCONTINUED. NO CARDIAC OR RESPIRATORY DISTRESS NOTED. BREATHING EVEN AND UNLABORED. PT TOLERATING ROOM AIR. SATURATING AT 95%, SHOWS NO SIGNS OF ACUTE RESPIRATORY DISTRESS, NO C/O PAIN OR DISCOMFORT. NO SOB NOTED . ILEFT SOH IN STABLE COPNDITION
== END 2019-10-01 17:20 | DRG 302 ==
LOC: ER 19:18 → TELE 20:58 → MED 09-29 09:46
PROVIDERS: ADMIT Internal Medicine; ATTEND Nurse Practitioner Acute Care
DX: I25.10 Atherosclerotic heart disease of native coronary artery without angina pectoris (principal); N17.0 Acute kidney failure with tubular necrosis; I50.23 Acute on chronic systolic (congestive) heart failure; D68.59 Other primary thrombophilia; I13.0 Hypertensive heart and chronic kidney disease with heart failure and stage 1 through stage 4 chronic kidney disease, or unspecified chronic kidney disease; I48.92 Unspecified atrial flutter; E87.2 Acidosis; E44.1 Mild protein-calorie malnutrition; E11.22 Type 2 diabetes mellitus with diabetic chronic kidney disease; F41.9 Anxiety disorder, unspecified; M62.84 Sarcopenia; N18.9 Chronic kidney disease, unspecified; E78.5 Hyperlipidemia, unspecified; E11.65 Type 2 diabetes mellitus with hyperglycemia; E03.9 Hypothyroidism, unspecified; D63.8 Anemia in other chronic diseases classified elsewhere; F32.9 Major depressive disorder, single episode, unspecified; I67.2 Cerebral atherosclerosis; Z95.810 Presence of automatic (implantable) cardiac defibrillator; Z79.899 Other long term (current) drug therapy; Z91.81 History of falling; R29.6 Repeated falls; N40.0 Benign prostatic hyperplasia without lower urinary tract symptoms; J44.9 Chronic obstructive pulmonary disease, unspecified; I48.91 Unspecified atrial fibrillation; Z95.1 Presence of aortocoronary bypass graft; Z88.0 Allergy status to penicillin; Z79.02 Long term (current) use of antithrombotics/antiplatelets; Z79.84 Long term (current) use of oral hypoglycemic drugs; Z79.82 Long term (current) use of aspirin; Z79.01 Long term (current) use of anticoagulants; F17.200 Nicotine dependence, unspecified, uncomplicated; E66.9 Obesity, unspecified; Z98.890 Other specified postprocedural states; Z68.28 Body mass index [BMI] 28.0-28.9, adult; R26.9 Unspecified abnormalities of gait and mobility
CPT/HCPCS: 36415; 71045-TC; 76770-TC; 80048-TC; 80053-TC; 80061-TC; 80076-TC; 80162-TC; 81000-TC; 82550-TC; 82570-TC; 82962-TC; 83690-TC; 83735-TC; 83880; 83970; 84100-TC; 84155; 84155-TC; 84165; 84300-TC; 84439-TC; 84443-TC; 84484-TC; 85025-TC; 85730-TC; 87081-TC; 93307-TC; 97110-TC; 97116-TC; 97530-TC; G0378; J1650; J1815; J1940; J7042